=== PATIENT | female | born 1960 | race Caucasian/White ===

== ENCOUNTER 2020-11-06 05:34 | Inpatient (IN) | payer MEDICARE, OTHER ==
[2020-11-05] MEDS: CARVEDILOL 12.5 MG TAB PO SCH (23:00)
[2020-11-06] VITALS (14 sets, daily range): BP systolic 131–177; BP diastolic 64–95
[~2020-11-06] VITALS: Ht 157.5 cm; Wt 63.5 kg
[~2020-11-06 05:34] MED LIST: AMLODIPINE BESY10 MG PO; LISINOPRIL-HCT1 EACH PO; METOPROLOL SUCC50 MG PO; NOVOLIN N100 UNIT/1 SC
[2020-11-06] MEDS ORDERED: HYDRALAZINE HCL 20 MG/ML VIAL IV STA (05:44)
[2020-11-06] MEDS ORDERED: HYDRALAZINE HCL 20 MG/ML VIAL ONE (05:57)
[2020-11-06 06:03] LABS: BASOPHILS # (AUTO) 0.1 (0.0-0.1); BASOPHILS % 0.7 % (0.0-1.0); EOSINOPHILS # (AUTO) 0.5 (0.0-0.4); EOSINOPHILS % 4.1 % (0.0-6.0); HEMATOCRIT 37.3 % (34.2-44.1); HEMOGLOBIN 11.8 g/dL (12.0-16.0); LYMPHOCYTES # (AUTO) 3.4 (1.0-3.2); MEAN CORPUSCULAR HEMOGLOBIN 30.5 pg (28-32); MEAN CORPUSCULAR HGB CONC 31.6 g/dL (31-35); MEAN CORPUSCULAR VOLUME 96.4 fL (81-99); MONOCYTES # (AUTO) 1.2 (0.2-0.8); MONOCYTES % 9.3 % (4.4-11.3); NEUTROPHILS # (AUTO) 7.3 (2.1-6.9); NEUTROPHILS % 58.6 % (38.7-80.0); PLATELET COUNT 440 x10e3/uL (140-360); RED BLOOD COUNT 3.87 x10e6/uL (3.6-5.1); RED CELL DISTRIBUTION WIDTH 13.3 % (11.7-14.4)
[2020-11-06 06:24] LABS: ALBUMIN 3.6 g/dL (3.5-5.0); ALBUMIN/GLOBULIN RATIO 0.7 (0.8-2.0); ANION GAP 16.5 mmol/L (8-16); CALCIUM 9.4 mg/dL (8.4-10.2); CREATININE, SERUM 4.32 mg/dL (0.57-1.11); POTASSIUM 4.5 mmol/L (3.5-5.1)
[2020-11-06 06:30] LABS: CREATINE KINASE MB 1.4 ng/mL (0-5.0)
[2020-11-06] MEDS ORDERED: NICARDIPINE 20MG/200ML PREMIX 200 ML IV STA (08:17)
[2020-11-06] MEDS ORDERED: ASPIRIN 81 MG CHEW TAB PO ONE (08:30)
[2020-11-06] MEDS ORDERED: NICARDIPINE 20MG/200ML PREMIX 200 ML ONE (08:46)
[2020-11-06] MEDS ORDERED: DIPHENHYDRAMINE HCL INJ 50 MG/ML VIAL IV STA (09:00)
[2020-11-06] MEDS ORDERED: CLINDAMYCIN HC150 MG PO (11:57)
[2020-11-06] MEDS ORDERED: CYMBALTA20 MG PO (11:57)
[2020-11-06] MEDS ORDERED: CARVEDILOL12.5 MG PO (11:57)
[2020-11-06] MEDS ORDERED: NIFEDIPINE ER30 M1 PO (11:57)
[2020-11-06] MEDS ORDERED: HYDRALAZINE HCL25 MG PO (11:57)
[2020-11-06] MEDS ORDERED: ACETAMINOPHEN 325 MG TAB PO PRN (14:45)
[2020-11-06] MEDS ORDERED: DOCUSATE SODIUM 100 MG CAP PO PRN (14:45)
[2020-11-06] MEDS ORDERED: POLYETHYLENE GLYCOL 3350 17 GM PACK PO PRN (14:45)
[2020-11-06] MEDS ORDERED: LIDOCAINE 4% PATCH TP PRN (14:45)
[2020-11-06] MEDS ORDERED: BENZONATATE 100 MG CAP PO PRN (14:45)
[2020-11-06] MEDS ORDERED: DIPHENHYDRAMINE HCL 25 MG CAP PO PRN (14:45)
[2020-11-06] MEDS ORDERED: DEXTROSE 50% SYRINGE 50 ML IV PRN (14:45)
[2020-11-06] MEDS ORDERED: SIMETHICONE 80 MG CHEW PO PRN (14:45)
[2020-11-06 14:58] LABS: CREATINE KINASE MB 1.6 ng/mL (0-5.0)
[2020-11-06] MEDS ORDERED: CARVEDILOL 12.5 MG TAB PO SCH (15:30)
[2020-11-06] MEDS ORDERED: ALBUMIN 25% 12.5GM 0.25 GM/ML BTL IV PRN (16:45)
[2020-11-06] MEDS ORDERED: HEPARIN SOD (PORCINE) 1000 UNIT/ML SDV IV PRN (16:45)
[2020-11-06] MEDS ORDERED: SODIUM CHLORIDE 0.9% 1000ML 2,000 ML IV PRN (16:45)
[2020-11-06] MEDS ORDERED: SODIUM CHLORIDE 0.9% 250ML 500 ML IV PRN (16:45)
[2020-11-06 18:23] LABS: CLARITY,URINE SL CLOUDY (CLEAR); COLOR,URINE YELLOW (YELLOW); KETONES,URINE NEGATIVE (NEGATIVE); LEUKOCYTE ESTERASE ,URINE NEGATIVE (NEGATIVE); NITRITE,URINE NEGATIVE (NEGATIVE); PROTEIN,URINE DIPSTICK >=300 (NEGATIVE); URINE UROBILINOGEN 0.2 mg/dL (0.2 - 1)
[2020-11-06 18:36] LABS: BACTERIA,URINE MANY /HPF; EPITHELIAL CELLS,URINE MANY /LPF; TRANSITIONAL EPI CELLS,URINE MODERATE; WBC,URINE (MAN) 0-5 /HPF (0-5)
[2020-11-06] MEDS: HYDROCODONE/APAP 5MG-325MG TAB PO PRN (18:43)
[2020-11-06] MEDS ORDERED: MELATONIN 5 MG TABLET PO PRN (21:00)
[2020-11-07] VITALS (21 sets, daily range): BP systolic 119–187; BP diastolic 52–110
[2020-11-07 04:51] LABS: BASOPHILS # (AUTO) 0.1 (0.0-0.1); BASOPHILS % 0.8 % (0.0-1.0); EOSINOPHILS # (AUTO) 0.3 (0.0-0.4); EOSINOPHILS % 2.7 % (0.0-6.0); HEMATOCRIT 35.3 % (34.2-44.1); HEMOGLOBIN 11.4 g/dL (12.0-16.0); LYMPHOCYTES # (AUTO) 2.4 (1.0-3.2); LYMPHOCYTES % 24.1 % (18.0-39.1); MEAN CORPUSCULAR HEMOGLOBIN 30.7 pg (28-32); MEAN CORPUSCULAR HGB CONC 32.3 g/dL (31-35); MEAN CORPUSCULAR VOLUME 95.1 fL (81-99); MONOCYTES # (AUTO) 0.9 (0.2-0.8); MONOCYTES % 8.9 % (4.4-11.3); NEUTROPHILS # (AUTO) 6.4 (2.1-6.9); NEUTROPHILS % 63.1 % (38.7-80.0); PLATELET COUNT 389 x10e3/uL (140-360); RED BLOOD COUNT 3.71 x10e6/uL (3.6-5.1); RED CELL DISTRIBUTION WIDTH 13.1 % (11.7-14.4)
[2020-11-07 05:08] LABS: ALBUMIN 3.1 g/dL (3.5-5.0); ALBUMIN/GLOBULIN RATIO 0.7 (0.8-2.0); CALCIUM 8.9 mg/dL (8.4-10.2); CREATININE, SERUM 2.29 mg/dL (0.57-1.11)
[2020-11-07 05:39] LABS: CREATINE KINASE MB 1.3 ng/mL (0-5.0)
[2020-11-07 05:52] LABS: CHOL/HDL RATIO 5.9 (3.0-3.6); PHOSPHORUS 3.2 MG/DL (2.3-4.7)
[2020-11-07] MEDS: PANTOPRAZOLE SOD 40 MG TABEC PO SCH (08:10)
[2020-11-07] MEDS: NIFEDIPINE CR 30 MG TAB PO SCH (08:11)
[2020-11-07] MEDS: CARVEDILOL 12.5 MG TAB PO SCH ×2 (08:11→21:01)
[2020-11-07] MEDS: DULOXETINE HCL 20 MG DELAYED RELEASE PO SCH (08:11)
[2020-11-07] MEDS: HYDROCODONE/APAP 5MG-325MG TAB PO PRN ×2 (09:35→11:51)
[2020-11-07] MEDS: ONDANSETRON HCL INJ 2MG/ML 2ML 2 MG/ML VIAL IV PRN (11:49)
[2020-11-08] VITALS (8 sets, daily range): BP systolic 136–177; BP diastolic 68–91
[2020-11-08 06:14] LABS: BASOPHILS # (AUTO) 0.1 (0.0-0.1); BASOPHILS % 0.8 % (0.0-1.0); EOSINOPHILS # (AUTO) 0.3 (0.0-0.4); HEMATOCRIT 36.7 % (34.2-44.1); HEMOGLOBIN 11.4 g/dL (12.0-16.0); LYMPHOCYTES # (AUTO) 2.5 (1.0-3.2); MEAN CORPUSCULAR HEMOGLOBIN 30.9 pg (28-32); MEAN CORPUSCULAR HGB CONC 31.1 g/dL (31-35); MEAN CORPUSCULAR VOLUME 99.5 fL (81-99); MONOCYTES % 8.9 % (4.4-11.3); NEUTROPHILS # (AUTO) 6.9 (2.1-6.9); PLATELET COUNT 334 x10e3/uL (140-360); RED BLOOD COUNT 3.69 x10e6/uL (3.6-5.1)
[2020-11-08 06:34] LABS: ANION GAP 13.5 mmol/L (8-16); CALCIUM 9.7 mg/dL (8.4-10.2); CREATININE, SERUM 3.67 mg/dL (0.57-1.11); POTASSIUM 4.5 mmol/L (3.5-5.1)
[2020-11-08] MEDS: HYDROCODONE/APAP 5MG-325MG TAB PO PRN ×2 (07:04→18:08)
[2020-11-08] MEDS: PANTOPRAZOLE SOD 40 MG TABEC PO SCH (07:30)
[2020-11-08] MEDS: ASPIRIN 81 MG CHEW TAB PO SCH (09:00)
[2020-11-08] MEDS: NIFEDIPINE CR 30 MG TAB PO SCH (09:00)
[2020-11-08] MEDS: DULOXETINE HCL 20 MG DELAYED RELEASE PO SCH (09:00)
[2020-11-08] MEDS: CARVEDILOL 12.5 MG TAB PO SCH ×2 (09:00→21:08)
[2020-11-08] MEDS: DOXAZOSIN MESYLATE 2 MG TAB PO SCH (21:07)
[2020-11-09] VITALS (7 sets, daily range): BP systolic 111–177; BP diastolic 60–85
[2020-11-09] MEDS: HYDROCODONE/APAP 5MG-325MG TAB PO PRN ×3 (04:51→20:00)
[2020-11-09] MEDS: CARVEDILOL 12.5 MG TAB PO SCH ×2 (08:51→21:30)
[2020-11-09] MEDS: CLOPIDOGREL BISULFATE 75 MG TAB PO SCH (08:51)
[2020-11-09] MEDS: ASPIRIN 81 MG CHEW TAB PO SCH (08:51)
[2020-11-09] MEDS: NIFEDIPINE CR 30 MG TAB PO SCH (08:51)
[2020-11-09] MEDS: PANTOPRAZOLE SOD 40 MG TABEC PO SCH (08:51)
[2020-11-09] MEDS: DULOXETINE HCL 20 MG DELAYED RELEASE PO SCH (08:51)
[2020-11-09] MEDS ORDERED: SODIUM CHLORIDE 0.9% 1000ML 1,000 ML IV SCH (11:30)
[2020-11-09] MEDS: ONDANSETRON HCL INJ 2MG/ML 2ML 2 MG/ML VIAL IV PRN (11:31)
[2020-11-09] MEDS: ATORVASTATIN 20 MG TAB PO SCH (21:30)
[2020-11-09] MEDS: DOXAZOSIN MESYLATE 2 MG TAB PO SCH (21:30)
[2020-11-10] VITALS (12 sets, daily range): BP systolic 134–187; BP diastolic 68–82
[2020-11-10] MEDS: HYDROCODONE/APAP 5MG-325MG TAB PO PRN ×4 (03:30→21:29)
[2020-11-10 06:47] LABS: INR 0.89; PROTHROMBIN TIME 12.5 seconds (11.9-14.5)
[2020-11-10 06:48] LABS: PARTIAL THROMBOPLASTIN TIME 30.6 seconds (23.8-35.5)
[2020-11-10 06:49] LABS: ANION GAP 15.5 mmol/L (8-16); CREATININE, SERUM 3.44 mg/dL (0.57-1.11); POTASSIUM 4.5 mmol/L (3.5-5.1)
[2020-11-10 07:21] LABS: BASOPHILS # (AUTO) 0.1 (0.0-0.1); BASOPHILS % 0.8 % (0.0-1.0); EOSINOPHILS # (AUTO) 0.4 (0.0-0.4); EOSINOPHILS % 4.1 % (0.0-6.0); HEMOGLOBIN 11.3 g/dL (12.0-16.0); LYMPHOCYTES # (AUTO) 1.9 (1.0-3.2); LYMPHOCYTES % 20.3 % (18.0-39.1); MEAN CORPUSCULAR HEMOGLOBIN 30.9 pg (28-32); MEAN CORPUSCULAR HGB CONC 31.4 g/dL (31-35); MEAN CORPUSCULAR VOLUME 98.4 fL (81-99); MONOCYTES # (AUTO) 0.9 (0.2-0.8); MONOCYTES % 10.2 % (4.4-11.3); NEUTROPHILS # (AUTO) 5.9 (2.1-6.9); NEUTROPHILS % 63.7 % (38.7-80.0); PLATELET COUNT 365 x10e3/uL (140-360); RED BLOOD COUNT 3.66 x10e6/uL (3.6-5.1); RED CELL DISTRIBUTION WIDTH 12.8 % (11.7-14.4)
[2020-11-10] MEDS: DULOXETINE HCL 20 MG DELAYED RELEASE PO SCH (09:00)
[2020-11-10] MEDS: NIFEDIPINE CR 30 MG TAB PO SCH (09:39)
[2020-11-10] MEDS: CLOPIDOGREL BISULFATE 75 MG TAB PO SCH (09:39)
[2020-11-10] MEDS: PANTOPRAZOLE SOD 40 MG TABEC PO SCH (09:45)
[2020-11-10] MEDS: ASPIRIN 81 MG CHEW TAB PO SCH (09:45)
[2020-11-10] MEDS: CARVEDILOL 12.5 MG TAB PO SCH ×2 (09:45→21:29)
[2020-11-10] MEDS ORDERED: MIDAZOLAM HCL 2 MG/2 ML VIAL ONE ×3 (11:09→14:02)
[2020-11-10] MEDS ORDERED: HEPARIN SOD/SOD CHLORIDE 2,000 ML ONE (11:10)
[2020-11-10] MEDS ORDERED: IOPAMIDOL 300MG/ML 100 ML INFUS..BTL IV ONE (11:10)
[2020-11-10] MEDS ORDERED: LIDOCAINE HCL 2% LOCAL 20 ML VIAL ONE (11:10)
[2020-11-10] MEDS ORDERED: FENTANYL CITRATE/PF 100MCG/2 ML INJ ONE ×2 (11:10→14:03)
[2020-11-10] MEDS ORDERED: SODIUM CHLORIDE 0.9% 1000ML 1,000 ML ONE (11:11)
[2020-11-10] MEDS ORDERED: HEPARIN SOD (PORCINE) 1000 UNIT/ML 30ML ONE (13:14)
[2020-11-10] MEDS ORDERED: CLOPIDOGREL BISULFATE 75 MG TAB ONE (13:23)
[2020-11-10] MEDS ORDERED: ASPIRIN 325 MG TAB ONE (13:23)
[2020-11-10] MEDS ORDERED: IOPAMIDOL 300MG/ML 50ML INFUS..BTL IV ONE (13:44)
[2020-11-10] MEDS ORDERED: CARVEDILOL 12.5 MG TAB PO NR (16:15)
[2020-11-10] MEDS ORDERED: NITROGLYCERIN 0.4 MG SUBL SL ONE (16:15)
[2020-11-10] MEDS: DOXAZOSIN MESYLATE 2 MG TAB PO SCH (21:28)
[2020-11-10] MEDS: ATORVASTATIN 20 MG TAB PO SCH (21:29)
[2020-11-11] VITALS (8 sets, daily range): BP systolic 149–183; BP diastolic 64–83
[2020-11-11] MEDS: HYDROCODONE/APAP 5MG-325MG TAB PO PRN ×3 (03:11→19:46)
[2020-11-11 05:29] LABS: BASOPHILS # (AUTO) 0.1 (0.0-0.1); BASOPHILS % 0.6 % (0.0-1.0); EOSINOPHILS # (AUTO) 0.2 (0.0-0.4); EOSINOPHILS % 1.8 % (0.0-6.0); HEMATOCRIT 32.7 % (34.2-44.1); HEMOGLOBIN 10.3 g/dL (12.0-16.0); LYMPHOCYTES # (AUTO) 1.4 (1.0-3.2); LYMPHOCYTES % 13.7 % (18.0-39.1); MEAN CORPUSCULAR HEMOGLOBIN 30.1 pg (28-32); MEAN CORPUSCULAR HGB CONC 31.5 g/dL (31-35); MEAN CORPUSCULAR VOLUME 95.6 fL (81-99); MONOCYTES # (AUTO) 1.1 (0.2-0.8); MONOCYTES % 10.7 % (4.4-11.3); NEUTROPHILS # (AUTO) 7.4 (2.1-6.9); NEUTROPHILS % 72.7 % (38.7-80.0); PLATELET COUNT 310 x10e3/uL (140-360); RED BLOOD COUNT 3.42 x10e6/uL (3.6-5.1); RED CELL DISTRIBUTION WIDTH 12.9 % (11.7-14.4)
[2020-11-11 06:05] LABS: ANION GAP 13.6 mmol/L (8-16); CALCIUM 8.7 mg/dL (8.4-10.2); CREATININE, SERUM 4.47 mg/dL (0.57-1.11); MAGNESIUM 2.2 MG/DL (1.3-2.1); PHOSPHORUS 5.8 MG/DL (2.3-4.7); POTASSIUM 4.6 mmol/L (3.5-5.1)
[2020-11-11] MEDS: PANTOPRAZOLE SOD 40 MG TABEC PO SCH (08:36)
[2020-11-11] MEDS: CARVEDILOL 12.5 MG TAB PO SCH ×3 (08:41→21:00)
[2020-11-11] MEDS: ASPIRIN 81 MG CHEW TAB PO SCH (08:41)
[2020-11-11] MEDS: DULOXETINE HCL 20 MG DELAYED RELEASE PO SCH (08:41)
[2020-11-11] MEDS: HYDRALAZINE HCL 25 MG TAB PO SCH ×4 (09:00→22:00)
[2020-11-11] MEDS ORDERED: NIFEDIPINE CR 30 MG TAB PO SCH ×2 (09:00→12:30)
[2020-11-11] MEDS ORDERED: ASPIRIN 325 MG TAB PO SCH (09:00)
[2020-11-11] MEDS: CLOPIDOGREL BISULFATE 75 MG TAB PO SCH (09:00)
[2020-11-11] MEDS: NIFEDIPINE CR 30 MG TAB PO SCH (13:45)
[2020-11-11] MEDS ORDERED: ONDANSETRON HCL 4 MG ORAL DISINTEGRATING TAB PO PRN (18:30)
[2020-11-11] MEDS ORDERED: DOXAZOSIN MESYLATE 2 MG TAB PO SCH (21:00)
[2020-11-11] MEDS ORDERED: ATORVASTATIN 40 MG TAB PO SCH (21:00)
[2020-11-12] VITALS (7 sets, daily range): BP systolic 106–144; BP diastolic 54–77
[2020-11-12 05:29] LABS: CALCIUM 8.5 mg/dL (8.4-10.2); CREATININE, SERUM 3.15 mg/dL (0.57-1.11)
[2020-11-12] MEDS: HYDRALAZINE HCL 25 MG TAB PO SCH ×3 (05:48→18:00)
[2020-11-12] MEDS: HYDROCODONE/APAP 5MG-325MG TAB PO PRN (05:48)
[2020-11-12] MEDS: PANTOPRAZOLE SOD 40 MG TABEC PO SCH (08:30)
[2020-11-12] MEDS: ASPIRIN 81 MG CHEW TAB PO SCH (09:22)
[2020-11-12] MEDS: DULOXETINE HCL 20 MG DELAYED RELEASE PO SCH (09:22)
[2020-11-12] MEDS: CARVEDILOL 12.5 MG TAB PO SCH (09:22)
[2020-11-12] MEDS: NIFEDIPINE CR 30 MG TAB PO SCH (09:23)
[2020-11-12] MEDS: CLOPIDOGREL BISULFATE 75 MG TAB PO SCH (09:23)
[2020-11-12] MEDS ORDERED: KETOROLAC TROMETHAMINE 30 MG/ML VIAL IV ONE (16:45)
== END 2020-11-12 19:18 | disposition home or self-care (01) | DRG 252 ==
LOC: ER 05:42 → ERHOLD 08:50 → ICU 10:20 → MED/SURG2 11-07 22:30
PROVIDERS: ADMIT Internal Medicine; ATTEND Internal Medicine
PROC: 5A1D70Z Performance of Urinary Filtration, Intermittent, Less than 6 Hours Per Day (ICD-10-PCS; 2020-11-06)
PROC: 5A1D70Z Performance of Urinary Filtration, Intermittent, Less than 6 Hours Per Day (ICD-10-PCS; 2020-11-09)
PROC: 047Q3Z1 Dilation of Left Anterior Tibial Artery using Drug-Coated Balloon, Percutaneous Approach (ICD-10-PCS; principal; 2020-11-10)
PROC: 047N3Z1 Dilation of Left Popliteal Artery using Drug-Coated Balloon, Percutaneous Approach (ICD-10-PCS; 2020-11-10)
PROC: 047L341 Dilation of Left Femoral Artery with Drug-eluting Intraluminal Device, using Drug-Coated Balloon, Percutaneous Approach (ICD-10-PCS; 2020-11-10)
PROC: B4101ZZ Fluoroscopy of Abdominal Aorta using Low Osmolar Contrast (ICD-10-PCS; 2020-11-10)
PROC: 5A1D70Z Performance of Urinary Filtration, Intermittent, Less than 6 Hours Per Day (ICD-10-PCS; 2020-11-11)
DX: I16.1 Hypertensive emergency (principal); N18.6 End stage renal disease; I63.9 Cerebral infarction, unspecified; I13.11 Hypertensive heart and chronic kidney disease without heart failure, with stage 5 chronic kidney disease, or end stage renal disease; E11.51 Type 2 diabetes mellitus with diabetic peripheral angiopathy without gangrene; F32.9 Major depressive disorder, single episode, unspecified; H54.3 Unqualified visual loss, both eyes; I25.10 Atherosclerotic heart disease of native coronary artery without angina pectoris; Z95.1 Presence of aortocoronary bypass graft; Z86.73 Personal history of transient ischemic attack (TIA), and cerebral infarction without residual deficits; D63.1 Anemia in chronic kidney disease; I70.212 Atherosclerosis of native arteries of extremities with intermittent claudication, left leg; Z79.899 Other long term (current) drug therapy; E83.39 Other disorders of phosphorus metabolism; Z99.2 Dependence on renal dialysis; Z88.8 Allergy status to other drugs, medicaments and biological substances; K46.9 Unspecified abdominal hernia without obstruction or gangrene; Z83.3 Family history of diabetes mellitus; Z82.49 Family history of ischemic heart disease and other diseases of the circulatory system; Z95.5 Presence of coronary angioplasty implant and graft; Z90.5 Acquired absence of kidney; I70.235 Atherosclerosis of native arteries of right leg with ulceration of other part of foot; L97.519 Non-pressure chronic ulcer of other part of right foot with unspecified severity; K80.20 Calculus of gallbladder without cholecystitis without obstruction; R01.1 Cardiac murmur, unspecified; Z20.822 Contact with and (suspected) exposure to COVID-19
CPT/HCPCS: 36247; 36415; 37226; 37228; 70450; 71045; 74018; 74176; 75625; 75716; 80048; 80053; 80061; 81001; 82550; 82553; 82948; 83036; 83690; 83735; 84100; 84484; 85025; 85610; 85730; 86704; 86705; 86707; 87340; 93005; 93041; 93306; 93925; 99152; 99153; 99285; C1725; C1760; C1769; C1887; J0360; J1644; J1885; J2001; J2250; J2405; J3010; J7030; Q9967; U0002

== ENCOUNTER 2020-12-10 12:45 | Inpatient (IN) | payer MEDICARE, OTHER ==
[~2020-12-10] VITALS: Ht 157.5 cm; Wt 62.6 kg
[~2020-12-10 12:45] MED LIST changes: +CARVEDILOL12.5 MG PO; +CLINDAMYCIN HC150 MG PO; +CYMBALTA20 MG PO; +HYDRALAZINE HCL25 MG PO; +NIFEDIPINE ER30 M1 PO
[2020-12-10 13:30] LABS: BASOPHILS # (AUTO) 0.1 (0.0-0.1); BASOPHILS % 0.6 % (0.0-1.0); EOSINOPHILS # (AUTO) 0.5 (0.0-0.4); EOSINOPHILS % 3.5 % (0.0-6.0); HEMATOCRIT 31.6 % (34.2-44.1); HEMOGLOBIN 9.9 g/dL (12.0-16.0); LYMPHOCYTES # (AUTO) 2.2 (1.0-3.2); LYMPHOCYTES % 15.3 % (18.0-39.1); MEAN CORPUSCULAR HEMOGLOBIN 29.7 pg (28-32); MEAN CORPUSCULAR HGB CONC 31.3 g/dL (31-35); MEAN CORPUSCULAR VOLUME 94.9 fL (81-99); MONOCYTES % 7.3 % (4.4-11.3); NEUTROPHILS # (AUTO) 10.2 (2.1-6.9); NEUTROPHILS % 72.8 % (38.7-80.0); PLATELET COUNT 572 x10e3/uL (140-360); RED BLOOD COUNT 3.33 x10e6/uL (3.6-5.1); RED CELL DISTRIBUTION WIDTH 12.6 % (11.7-14.4)
[2020-12-10 13:44] LABS: INR 0.89; PROTHROMBIN TIME 12.6 seconds (11.9-14.5)
[2020-12-10 13:45] LABS: PARTIAL THROMBOPLASTIN TIME 30.9 seconds (23.8-35.5)
[2020-12-10 13:51] LABS: ALBUMIN/GLOBULIN RATIO 0.5 (0.8-2.0); ANION GAP 19.6 mmol/L (8-16); CALCIUM 9.6 mg/dL (8.4-10.2); CREATININE, SERUM 4.45 mg/dL (0.57-1.11); POTASSIUM 4.6 mmol/L (3.5-5.1)
[2020-12-10 14:09] LABS: B-TYPE NATRIURETIC PEPTIDE2 851.1 pg/mL (0-100)
[2020-12-10] MEDS ORDERED: PIPERACILLIN/TAZO 4.5 GM 100 ML IV STA (14:10)
[2020-12-10] MEDS ORDERED: CEFEPIME HCL 1GM 1 GM in SODIUM CHLORIDE 0.9% 50ML 50 ML IV STA (14:14)
[2020-12-10] MEDS ORDERED: VANCOMYCIN 500MG/NS 0.9% 100ML 100 ML IV SCH ×2 (15:00→17:00)
[2020-12-10] MEDS ORDERED: SODIUM CHLORIDE 0.9% 1000ML 2,000 ML ONE (16:27)
[2020-12-10] MEDS ORDERED: SODIUM CHLORIDE 0.9% 1000ML 1,000 ML ONE (16:39)
[2020-12-10] MEDS ORDERED: SODIUM CHLORIDE 0.9% 1000ML 2,000 ML IV PRN (17:00)
[2020-12-10] MEDS ORDERED: HEPARIN SOD (PORCINE) 1000 UNIT/ML SDV IV PRN (17:00)
[2020-12-10 17:20] VITALS: BP 174/93
[2020-12-10 17:54] VITALS: BP 174/93
[2020-12-10] MEDS ORDERED: HYDROMORPHONE 1MG/1ML INJ IV STA (19:53)
[2020-12-10 20:00] VITALS: BP 113/71
[2020-12-10] MEDS ORDERED: ATORVASTATIN CA20 MG PO (20:04)
[2020-12-10] MEDS ORDERED: DOXAZOSIN MESYLA2 MG PO (20:04)
[2020-12-10] MEDS ORDERED: NIFEDIPINE ER30 M1 PO ×2 (20:04)
[2020-12-10] MEDS ORDERED: CLOPIDOGREL75 MG PO (20:04)
[2020-12-10] MEDS ORDERED: SODIUM CHLORIDE 0.9% 250ML 250 ML ONE (20:47)
[2020-12-10 20:49] VITALS: BP 113/71
[2020-12-10] MEDS: VANCOMYCIN 500MG/NS 0.9% 100ML 100 ML IV SCH (21:19)
[2020-12-11] VITALS (8 sets, daily range): BP systolic 126–159; BP diastolic 67–91
[2020-12-11] MEDS ORDERED: CEFEPIME HCL 1GM 1 GM in SODIUM CHLORIDE 0.9% 50ML 50 ML IV SCH (03:30)
[2020-12-11] MEDS: HYDROCODONE/APAP 5MG-325MG TAB PO PRN ×3 (04:01→21:38)
[2020-12-11 05:38] LABS: BASOPHILS # (AUTO) 0.1 (0.0-0.1); BASOPHILS % 0.6 % (0.0-1.0); EOSINOPHILS # (AUTO) 0.3 (0.0-0.4); EOSINOPHILS % 2.8 % (0.0-6.0); HEMATOCRIT 31.3 % (34.2-44.1); HEMOGLOBIN 10.2 g/dL (12.0-16.0); LYMPHOCYTES # (AUTO) 2.3 (1.0-3.2); LYMPHOCYTES % 19.7 % (18.0-39.1); MEAN CORPUSCULAR HGB CONC 32.6 g/dL (31-35); MEAN CORPUSCULAR VOLUME 92.1 fL (81-99); MONOCYTES # (AUTO) 1.1 (0.2-0.8); MONOCYTES % 9.1 % (4.4-11.3); NEUTROPHILS # (AUTO) 7.9 (2.1-6.9); NEUTROPHILS % 67.4 % (38.7-80.0); PLATELET COUNT 525 x10e3/uL (140-360); RED CELL DISTRIBUTION WIDTH 12.2 % (11.7-14.4)
[2020-12-11 06:02] LABS: ANION GAP 14.3 mmol/L (8-16); CALCIUM 8.7 mg/dL (8.4-10.2); CREATININE, SERUM 2.67 mg/dL (0.57-1.11); POTASSIUM 4.3 mmol/L (3.5-5.1)
[2020-12-11] MEDS: DULOXETINE HCL 20 MG DELAYED RELEASE PO SCH (09:00)
[2020-12-11] MEDS: NIFEDIPINE CR 30 MG TAB PO SCH (09:00)
[2020-12-11] MEDS: ATORVASTATIN 20 MG TAB PO SCH (09:00)
[2020-12-11] MEDS: VANCOMYCIN 500MG/NS 0.9% 100ML 100 ML IV SCH (09:18)
[2020-12-11] MEDS ORDERED: SODIUM CHLORIDE 0.9% 500ML 500 ML ONE (10:41)
[2020-12-11] MEDS ORDERED: BUPIVACAINE HCL 0.5% INJ 30 ML VIAL INJ ONE (10:46)
[2020-12-11] MEDS ORDERED: MUPIROCIN 2% OINT 22 GM TUBE ONE (11:31)
[2020-12-11] MEDS ORDERED: FENTANYL CITRATE/PF 100MCG/2 ML INJ ONE ×2 (12:09→13:11)
[2020-12-11] MEDS ORDERED: MIDAZOLAM HCL 2 MG/2 ML VIAL ONE (13:11)
[2020-12-11] MEDS ORDERED: VANCOMYCIN 1GM/NS 250 ML 250 ML IV SCH (13:15)
[2020-12-11] MEDS ORDERED: PROPOFOL IV EMULSION 10 MG/ML 20 ML VIAL ONE (13:43)
[2020-12-11] MEDS ORDERED: ONDANSETRON HCL INJ 2MG/ML 2ML 2 MG/ML VIAL ONE (13:43)
[2020-12-11] MEDS ORDERED: EPHEDRINE SULFATE INJ 50 MG/ML VIAL ONE (13:43)
[2020-12-11] MEDS ORDERED: SEVOFLURANE INHAL SOLN 250 ML PEN BTL ONE (13:43)
[2020-12-11] MEDS ORDERED: LIDOCAINE HCL 2% LOCAL INJ 5 ML SDV VIAL INJ ONE (13:43)
[2020-12-11] MEDS: DOXAZOSIN MESYLATE 2 MG TAB PO SCH (21:37)
[2020-12-12] VITALS (8 sets, daily range): BP systolic 144–183; BP diastolic 74–83
[2020-12-12] MEDS: HYDROCODONE/APAP 5MG-325MG TAB PO PRN (06:30)
[2020-12-12 07:19] LABS: BASOPHILS # (AUTO) 0.1 (0.0-0.1); BASOPHILS % 0.6 % (0.0-1.0); EOSINOPHILS # (AUTO) 0.8 (0.0-0.4); EOSINOPHILS % 8.3 % (0.0-6.0); HEMATOCRIT 30.7 % (34.2-44.1); HEMOGLOBIN 9.6 g/dL (12.0-16.0); LYMPHOCYTES # (AUTO) 1.8 (1.0-3.2); LYMPHOCYTES % 18.2 % (18.0-39.1); MEAN CORPUSCULAR HEMOGLOBIN 29.6 pg (28-32); MEAN CORPUSCULAR HGB CONC 31.3 g/dL (31-35); MEAN CORPUSCULAR VOLUME 94.8 fL (81-99); MONOCYTES # (AUTO) 1.1 (0.2-0.8); MONOCYTES % 11.7 % (4.4-11.3); NEUTROPHILS # (AUTO) 5.9 (2.1-6.9); NEUTROPHILS % 60.9 % (38.7-80.0); PLATELET COUNT 535 x10e3/uL (140-360); RED BLOOD COUNT 3.24 x10e6/uL (3.6-5.1); RED CELL DISTRIBUTION WIDTH 12.4 % (11.7-14.4)
[2020-12-12 07:45] LABS: ALBUMIN 2.8 g/dL (3.5-5.0); ALBUMIN/GLOBULIN RATIO 0.6 (0.8-2.0); ALKALINE PHOSPHATASE 77 IU/L (40-150); ANION GAP 14.7 mmol/L (8-16); BLOOD UREA NITROGEN 29 mg/dL (7-26); BUN/CREATININE RATIO 7 (6-25); CALCIUM 8.6 mg/dL (8.4-10.2); CARBON DIOXIDE 26 mmol/L (22-29); CHLORIDE 105 mmol/L (98-107); CREATININE, SERUM 4.02 mg/dL (0.57-1.11); EST GLOMERULAR FILTRATION RATE 11 ML/MIN (60-); GLUCOSE 133 mg/dL (74-118); POTASSIUM 4.7 mmol/L (3.5-5.1); SODIUM 141 mmol/L (136-145)
[2020-12-12 07:46] LABS: ALANINE AMINOTRANSFERASE < 6 IU/L (0-55)
[2020-12-12] MEDS ORDERED: CEFEPIME HCL 1 GM VIAL IV SCH (09:00)
[2020-12-12] MEDS: CEFEPIME HCL 1GM 1 GM in SODIUM CHLORIDE 0.9% 50ML 50 ML IV SCH ×2 (09:00→10:50)
[2020-12-12] MEDS: DULOXETINE HCL 20 MG DELAYED RELEASE PO SCH (09:33)
[2020-12-12] MEDS: ATORVASTATIN 20 MG TAB PO SCH (09:33)
[2020-12-12] MEDS: NIFEDIPINE CR 30 MG TAB PO SCH (09:34)
[2020-12-12] MEDS ORDERED: HEPARIN SOD (PORCINE) 1000 UNIT/ML SDV IV PRN (15:45)
[2020-12-12] MEDS: DOXAZOSIN MESYLATE 2 MG TAB PO SCH (21:00)
[2020-12-12] MEDS: ONDANSETRON HCL INJ 2MG/ML 2ML 2 MG/ML VIAL IV PRN (21:30)
[2020-12-13] VITALS (8 sets, daily range): BP systolic 137–175; BP diastolic 69–92
[2020-12-13] MEDS: DULOXETINE HCL 20 MG DELAYED RELEASE PO SCH (09:54)
[2020-12-13] MEDS: ATORVASTATIN 20 MG TAB PO SCH (09:54)
[2020-12-13] MEDS: NIFEDIPINE CR 30 MG TAB PO SCH (09:55)
[2020-12-13] MEDS: CEFEPIME HCL 1GM 1 GM in SODIUM CHLORIDE 0.9% 50ML 50 ML IV SCH (09:58)
[2020-12-13] MEDS: HYDROCODONE/APAP 5MG-325MG TAB PO PRN ×2 (10:26→21:22)
[2020-12-13] MEDS: DOXAZOSIN MESYLATE 2 MG TAB PO SCH (21:22)
[2020-12-14] VITALS (8 sets, daily range): BP systolic 125–188; BP diastolic 64–90
[2020-12-14] MEDS: CLONIDINE HCL 0.1 MG TAB PO PRN ×2 (06:05→12:43)
[2020-12-14 06:14] LABS: BASOPHILS # (AUTO) 0.1 (0.0-0.1); BASOPHILS % 0.7 % (0.0-1.0); EOSINOPHILS # (AUTO) 0.9 (0.0-0.4); EOSINOPHILS % 10.2 % (0.0-6.0); HEMATOCRIT 29.7 % (34.2-44.1); HEMOGLOBIN 9.3 g/dL (12.0-16.0); LYMPHOCYTES # (AUTO) 2.4 (1.0-3.2); MEAN CORPUSCULAR HEMOGLOBIN 29.7 pg (28-32); MEAN CORPUSCULAR HGB CONC 31.3 g/dL (31-35); MEAN CORPUSCULAR VOLUME 94.9 fL (81-99); MONOCYTES # (AUTO) 0.9 (0.2-0.8); NEUTROPHILS # (AUTO) 4.8 (2.1-6.9); NEUTROPHILS % 52.8 % (38.7-80.0); PLATELET COUNT 469 x10e3/uL (140-360); RED BLOOD COUNT 3.13 x10e6/uL (3.6-5.1); RED CELL DISTRIBUTION WIDTH 12.4 % (11.7-14.4)
[2020-12-14 06:27] LABS: ALBUMIN 2.8 g/dL (3.5-5.0); ALBUMIN/GLOBULIN RATIO 0.6 (0.8-2.0); ANION GAP 14.4 mmol/L (8-16); CALCIUM 8.7 mg/dL (8.4-10.2); CREATININE, SERUM 4.36 mg/dL (0.57-1.11); POTASSIUM 4.4 mmol/L (3.5-5.1)
[2020-12-14] MEDS: DULOXETINE HCL 20 MG DELAYED RELEASE PO SCH (08:23)
[2020-12-14] MEDS: ATORVASTATIN 20 MG TAB PO SCH (08:24)
[2020-12-14] MEDS: NIFEDIPINE CR 30 MG TAB PO SCH (08:25)
[2020-12-14] MEDS: CEFEPIME HCL 1GM 1 GM in SODIUM CHLORIDE 0.9% 50ML 50 ML IV SCH (08:31)
[2020-12-14] MEDS ORDERED: CEFTRIAXONE SOD 2 GM/100 ML ML IV SCH (14:15)
[2020-12-14] MEDS ORDERED: CEFTRIAXONE SOD 2 GM in SODIUM CHLORIDE 0.9% 100 ML IV SCH (15:00)
[2020-12-14] MEDS: HYDRALAZINE HCL 25 MG TAB PO SCH ×2 (15:59→21:12)
[2020-12-14] MEDS ORDERED: SODIUM CHLORIDE 0.9% 250ML 250 ML ONE (17:15)
[2020-12-14] MEDS: CEFTRIAXONE SOD 2 GM in SODIUM CHLORIDE 0.9% 100 ML IV SCH (17:15)
[2020-12-14] MEDS: HYDROCODONE/APAP 5MG-325MG TAB PO PRN (21:12)
[2020-12-15] VITALS (9 sets, daily range): BP systolic 148–189; BP diastolic 67–89
[2020-12-15] MEDS: HYDRALAZINE HCL 25 MG TAB PO SCH ×3 (07:57→21:30)
[2020-12-15] MEDS: HYDROCODONE/APAP 5MG-325MG TAB PO PRN (08:08)
[2020-12-15] MEDS: ATORVASTATIN 20 MG TAB PO SCH (08:08)
[2020-12-15] MEDS: DULOXETINE HCL 20 MG DELAYED RELEASE PO SCH (08:08)
[2020-12-15] MEDS: NIFEDIPINE CR 30 MG TAB PO SCH ×2 (09:00→12:37)
[2020-12-15] MEDS: ONDANSETRON HCL INJ 2MG/ML 2ML 2 MG/ML VIAL IV PRN (10:37)
[2020-12-15] MEDS: CLONIDINE HCL 0.1 MG TAB PO PRN (16:10)
[2020-12-15] MEDS: CEFTRIAXONE SOD 2 GM in SODIUM CHLORIDE 0.9% 100 ML IV SCH (16:30)
[2020-12-16] VITALS (12 sets, daily range): BP systolic 132–169; BP diastolic 61–85
[2020-12-16] MEDS: HYDRALAZINE HCL 25 MG TAB PO SCH ×3 (08:02→21:00)
[2020-12-16] MEDS: DULOXETINE HCL 20 MG DELAYED RELEASE PO SCH (08:02)
[2020-12-16] MEDS: NIFEDIPINE CR 30 MG TAB PO SCH (08:03)
[2020-12-16 08:22] LABS: BASOPHILS # (AUTO) 0.1 (0.0-0.1); BASOPHILS % 1.1 % (0.0-1.0); EOSINOPHILS # (AUTO) 0.7 (0.0-0.4); LYMPHOCYTES # (AUTO) 2.4 (1.0-3.2); LYMPHOCYTES % 27.7 % (18.0-39.1); MEAN CORPUSCULAR HEMOGLOBIN 29.9 pg (28-32); MEAN CORPUSCULAR HGB CONC 32.3 g/dL (31-35); MEAN CORPUSCULAR VOLUME 92.8 fL (81-99); MONOCYTES # (AUTO) 0.7 (0.2-0.8); MONOCYTES % 8.2 % (4.4-11.3); NEUTROPHILS # (AUTO) 4.8 (2.1-6.9); NEUTROPHILS % 54.7 % (38.7-80.0); PLATELET COUNT 457 x10e3/uL (140-360); RED BLOOD COUNT 3.34 x10e6/uL (3.6-5.1); RED CELL DISTRIBUTION WIDTH 12.5 % (11.7-14.4)
[2020-12-16 08:56] LABS: ANION GAP 12.3 mmol/L (8-16); CALCIUM 9.2 mg/dL (8.4-10.2); CREATININE, SERUM 3.3 mg/dL (0.57-1.11); POTASSIUM 4.3 mmol/L (3.5-5.1)
[2020-12-16] MEDS: CEFTRIAXONE SOD 2 GM in SODIUM CHLORIDE 0.9% 100 ML IV SCH (17:23)
[2020-12-16] MEDS: ATORVASTATIN 40 MG TAB PO SCH (21:00)
[2020-12-17] VITALS (9 sets, daily range): BP systolic 131–184; BP diastolic 64–82
[2020-12-17] MEDS: HYDROCODONE/APAP 5MG-325MG TAB PO PRN ×2 (00:30→10:51)
[2020-12-17] MEDS: DULOXETINE HCL 20 MG DELAYED RELEASE PO SCH (09:00)
[2020-12-17] MEDS: HYDRALAZINE HCL 25 MG TAB PO SCH ×3 (09:34→20:51)
[2020-12-17] MEDS: NIFEDIPINE CR 30 MG TAB PO SCH (09:35)
[2020-12-17] MEDS: CLONIDINE HCL 0.1 MG TAB PO PRN (11:23)
[2020-12-17] MEDS ORDERED: ONDANSETRON HCL 4 MG ORAL DISINTEGRATING TAB PO PRN (16:00)
[2020-12-17] MEDS: ATORVASTATIN 40 MG TAB PO SCH (20:51)
== END 2020-12-17 21:07 | disposition home or self-care (01) | DRG 853 ==
LOC: ER 14:01 → ERHOLD 14:13 → MED/SURG3 15:36
PROVIDERS: ADMIT Internal Medicine; ATTEND Internal Medicine
PROC: 5A1D70Z Performance of Urinary Filtration, Intermittent, Less than 6 Hours Per Day (ICD-10-PCS; 2020-12-10)
PROC: 0HRNXK3 Replacement of Left Foot Skin with Nonautologous Tissue Substitute, Full Thickness, External Approach (ICD-10-PCS; 2020-12-11)
PROC: 0Y6Q0Z0 Detachment at Left 1st Toe, Complete, Open Approach (ICD-10-PCS; principal; 2020-12-11 10:30)
PROC: 5A1D70Z Performance of Urinary Filtration, Intermittent, Less than 6 Hours Per Day (ICD-10-PCS; 2020-12-12)
PROC: 5A1D70Z Performance of Urinary Filtration, Intermittent, Less than 6 Hours Per Day (ICD-10-PCS; 2020-12-15)
PROC: 5A1D70Z Performance of Urinary Filtration, Intermittent, Less than 6 Hours Per Day (ICD-10-PCS; 2020-12-17)
DX: A41.9 Sepsis, unspecified organism (principal); N18.6 End stage renal disease; G92 Toxic encephalopathy; I12.0 Hypertensive chronic kidney disease with stage 5 chronic kidney disease or end stage renal disease; N17.9 Acute kidney failure, unspecified; M86.172 Other acute osteomyelitis, left ankle and foot; L03.032 Cellulitis of left toe; E11.69 Type 2 diabetes mellitus with other specified complication; E11.22 Type 2 diabetes mellitus with diabetic chronic kidney disease; Z99.2 Dependence on renal dialysis; Z91.15 Patient's noncompliance with renal dialysis; I25.10 Atherosclerotic heart disease of native coronary artery without angina pectoris; Z95.5 Presence of coronary angioplasty implant and graft; Z90.5 Acquired absence of kidney; Z88.8 Allergy status to other drugs, medicaments and biological substances; Z91.120 Patient's intentional underdosing of medication regimen due to financial hardship; E11.319 Type 2 diabetes mellitus with unspecified diabetic retinopathy without macular edema; Z82.49 Family history of ischemic heart disease and other diseases of the circulatory system; D64.9 Anemia, unspecified; Z95.820 Peripheral vascular angioplasty status with implants and grafts; R53.81 Other malaise; T36.1X5A Adverse effect of cephalosporins and other beta-lactam antibiotics, initial encounter; Y92.230 Patient room in hospital as the place of occurrence of the external cause; E11.621 Type 2 diabetes mellitus with foot ulcer; L97.524 Non-pressure chronic ulcer of other part of left foot with necrosis of bone; B95.61 Methicillin susceptible Staphylococcus aureus infection as the cause of diseases classified elsewhere; B96.89 Other specified bacterial agents as the cause of diseases classified elsewhere
CPT/HCPCS: 36415; 71045; 76000; 80048; 80053; 82948; 83605; 83880; 85025; 85610; 85730; 86704; 86706; 87040; 87071; 87075; 87186; 87205; 87340; 88304; 88305; 88311; 90962; 93005; 93925; 99251; 99284; J0692; J0696; J1170; J1644; J2001; J2250; J2405; J3010; J3370; J7030; J7040; J7050; U0002

== ENCOUNTER 2020-12-21 12:07 | Inpatient (IN) | payer MEDICARE, OTHER ==
[~2020-12-21] VITALS: Ht 157.5 cm; Wt 62.6 kg
[~2020-12-21 12:07] MED LIST changes: +ATORVASTATIN CA20 MG PO; +CLOPIDOGREL75 MG PO; +DOXAZOSIN MESYLA2 MG PO
[2020-12-21 12:45] LABS: BASOPHILS # (AUTO) 0.1 (0.0-0.1); BASOPHILS % 0.8 % (0.0-1.0); EOSINOPHILS # (AUTO) 0.6 (0.0-0.4); EOSINOPHILS % 4.2 % (0.0-6.0); HEMATOCRIT 33.3 % (34.2-44.1); HEMOGLOBIN 10.4 g/dL (12.0-16.0); LYMPHOCYTES # (AUTO) 2.2 (1.0-3.2); LYMPHOCYTES % 15.5 % (18.0-39.1); MEAN CORPUSCULAR HEMOGLOBIN 29.5 pg (28-32); MEAN CORPUSCULAR HGB CONC 31.2 g/dL (31-35); MEAN CORPUSCULAR VOLUME 94.3 fL (81-99); MONOCYTES # (AUTO) 0.8 (0.2-0.8); MONOCYTES % 5.9 % (4.4-11.3); NEUTROPHILS # (AUTO) 10.4 (2.1-6.9); PLATELET COUNT 381 x10e3/uL (140-360); RED BLOOD COUNT 3.53 x10e6/uL (3.6-5.1); RED CELL DISTRIBUTION WIDTH 13.2 % (11.7-14.4)
[2020-12-21 13:10] LABS: INR 0.85; PROTHROMBIN TIME 12.2 seconds (11.9-14.5)
[2020-12-21 13:16] LABS: ALBUMIN 3.6 g/dL (3.5-5.0); ALBUMIN/GLOBULIN RATIO 0.9 (0.8-2.0); ANION GAP 18.3 mmol/L (8-16); CALCIUM 8.8 mg/dL (8.4-10.2); CREATININE, SERUM 7.02 mg/dL (0.57-1.11); POTASSIUM 4.3 mmol/L (3.5-5.1)
[2020-12-21] MEDS ORDERED: NIFEDIPINE CR 30 MG TAB PO ONE (13:45)
[2020-12-21] MEDS ORDERED: ASPIRIN 325 MG TAB PO ONE (14:00)
[2020-12-21] MEDS ORDERED: ASPIRIN 81 MG CHEW TAB PO ONE (14:00)
[2020-12-21] MEDS: HYDRALAZINE HCL 20 MG/ML VIAL IV PRN (16:04)
[2020-12-21 19:30] VITALS: BP 164/66
[2020-12-21 20:22] VITALS: BP 164/66
[2020-12-22] VITALS (8 sets, daily range): BP systolic 109–171; BP diastolic 65–83
[2020-12-22] MEDS: HYDRALAZINE HCL 20 MG/ML VIAL IV PRN (03:13)
[2020-12-22 06:05] LABS: BASOPHILS # (AUTO) 0.1 (0.0-0.1); BASOPHILS % 1.1 % (0.0-1.0); EOSINOPHILS # (AUTO) 0.6 (0.0-0.4); EOSINOPHILS % 5.5 % (0.0-6.0); HEMATOCRIT 31.1 % (34.2-44.1); HEMOGLOBIN 9.9 g/dL (12.0-16.0); LYMPHOCYTES # (AUTO) 2.1 (1.0-3.2); LYMPHOCYTES % 19.9 % (18.0-39.1); MEAN CORPUSCULAR HEMOGLOBIN 29.6 pg (28-32); MEAN CORPUSCULAR HGB CONC 31.8 g/dL (31-35); MEAN CORPUSCULAR VOLUME 93.1 fL (81-99); MONOCYTES # (AUTO) 0.7 (0.2-0.8); MONOCYTES % 6.6 % (4.4-11.3); NEUTROPHILS # (AUTO) 6.9 (2.1-6.9); NEUTROPHILS % 66.4 % (38.7-80.0); PLATELET COUNT 370 x10e3/uL (140-360); RED BLOOD COUNT 3.34 x10e6/uL (3.6-5.1); RED CELL DISTRIBUTION WIDTH 13.2 % (11.7-14.4)
[2020-12-22 06:24] LABS: ANION GAP 19.9 mmol/L (8-16); CALCIUM 8.6 mg/dL (8.4-10.2); CREATININE, SERUM 7.62 mg/dL (0.57-1.11); POTASSIUM 3.9 mmol/L (3.5-5.1)
[2020-12-22] MEDS ORDERED: SODIUM CHLORIDE 0.9% 1000ML 1,000 ML ONE (08:29)
[2020-12-22] MEDS ORDERED: ONDANSETRON HCL INJ 2MG/ML 2ML 2 MG/ML VIAL IV PRN (08:45)
[2020-12-22 14:36] LABS: CHOL/HDL RATIO 4.8 (3.0-3.6)
[2020-12-22] MEDS: HYDROCODONE/APAP 5MG-325MG TAB PO PRN (15:32)
[2020-12-22] MEDS: PANTOPRAZOLE SOD 40 MG TABEC PO SCH (15:33)
[2020-12-22] MEDS: ATORVASTATIN 40 MG TAB PO SCH (22:08)
[2020-12-23] VITALS (9 sets, daily range): BP systolic 120–173; BP diastolic 68–82
[2020-12-23 05:56] LABS: ANION GAP 17.1 mmol/L (8-16); CALCIUM 9.1 mg/dL (8.4-10.2); CREATININE, SERUM 5.09 mg/dL (0.57-1.11); POTASSIUM 4.1 mmol/L (3.5-5.1)
[2020-12-23] MEDS: HYDRALAZINE HCL 20 MG/ML VIAL IV PRN ×3 (06:20→22:16)
[2020-12-23] MEDS: PANTOPRAZOLE SOD 40 MG TABEC PO SCH (09:00)
[2020-12-23] MEDS: HYDROCODONE/APAP 5MG-325MG TAB PO PRN ×2 (09:00→18:10)
[2020-12-23] MEDS: ASPIRIN 325 MG TAB PO SCH (09:38)
[2020-12-23] MEDS: ATORVASTATIN 40 MG TAB PO SCH (21:00)
[2020-12-24] VITALS (8 sets, daily range): BP systolic 134–216; BP diastolic 64–97
[2020-12-24] MEDS: HYDRALAZINE HCL 20 MG/ML VIAL IV PRN ×2 (05:25→05:32)
[2020-12-24] MEDS: HYDROCODONE/APAP 5MG-325MG TAB PO PRN ×3 (05:51→20:24)
[2020-12-24] MEDS: PANTOPRAZOLE SOD 40 MG TABEC PO SCH (09:00)
[2020-12-24] MEDS ORDERED: SODIUM CHLORIDE 0.9% 250ML 500 ML IV PRN (09:15)
[2020-12-24] MEDS ORDERED: ALBUMIN 25% 12.5GM 0.25 GM/ML BTL IV PRN (09:15)
[2020-12-24] MEDS ORDERED: HEPARIN SOD (PORCINE) 1000 UNIT/ML SDV IV PRN (09:15)
[2020-12-24] MEDS ORDERED: SODIUM CHLORIDE 0.9% 1000ML 2,000 ML IV PRN (09:15)
[2020-12-24] MEDS: ASPIRIN 325 MG TAB PO SCH (09:33)
[2020-12-24] MEDS: CARVEDILOL 12.5 MG TAB PO SCH ×2 (11:50→17:16)
[2020-12-24] MEDS: ATORVASTATIN 40 MG TAB PO SCH (21:00)
[2020-12-25] VITALS (7 sets, daily range): BP systolic 145–207; BP diastolic 61–89
[2020-12-25] MEDS: HYDROCODONE/APAP 5MG-325MG TAB PO PRN ×3 (05:26→20:50)
[2020-12-25 06:13] LABS: ANION GAP 12.4 mmol/L (8-16); CALCIUM 8.9 mg/dL (8.4-10.2); CREATININE, SERUM 3.97 mg/dL (0.57-1.11); POTASSIUM 4.4 mmol/L (3.5-5.1)
[2020-12-25] MEDS: PANTOPRAZOLE SOD 40 MG TABEC PO SCH (09:00)
[2020-12-25] MEDS: ASPIRIN 325 MG TAB PO SCH (09:25)
[2020-12-25] MEDS: CARVEDILOL 12.5 MG TAB PO SCH ×2 (09:25→17:23)
[2020-12-25] MEDS: HYDRALAZINE HCL 20 MG/ML VIAL IV PRN ×2 (11:30→21:46)
[2020-12-25] MEDS: MUPIROCIN 2% OINT 22 GM TUBE TOP SCH (17:00)
[2020-12-25] MEDS: ATORVASTATIN 40 MG TAB PO SCH (21:12)
[2020-12-26] VITALS (9 sets, daily range): BP systolic 137–198; BP diastolic 62–94
[2020-12-26] MEDS: HYDROCODONE/APAP 5MG-325MG TAB PO PRN ×5 (04:04→22:47)
[2020-12-26] MEDS: HYDRALAZINE HCL 20 MG/ML VIAL IV PRN ×2 (05:54→11:30)
[2020-12-26 06:36] LABS: BASOPHILS # (AUTO) 0.1 (0.0-0.1); EOSINOPHILS # (AUTO) 0.8 (0.0-0.4); EOSINOPHILS % 8.8 % (0.0-6.0); HEMATOCRIT 29.6 % (34.2-44.1); HEMOGLOBIN 9.5 g/dL (12.0-16.0); LYMPHOCYTES # (AUTO) 2.4 (1.0-3.2); LYMPHOCYTES % 26.4 % (18.0-39.1); MEAN CORPUSCULAR HEMOGLOBIN 29.8 pg (28-32); MEAN CORPUSCULAR HGB CONC 32.1 g/dL (31-35); MEAN CORPUSCULAR VOLUME 92.8 fL (81-99); MONOCYTES # (AUTO) 0.8 (0.2-0.8); MONOCYTES % 8.6 % (4.4-11.3); NEUTROPHILS % 54.9 % (38.7-80.0); PLATELET COUNT 329 x10e3/uL (140-360); RED BLOOD COUNT 3.19 x10e6/uL (3.6-5.1); RED CELL DISTRIBUTION WIDTH 13.1 % (11.7-14.4)
[2020-12-26 07:00] LABS: ANION GAP 15.9 mmol/L (8-16); CALCIUM 9.1 mg/dL (8.4-10.2); CREATININE, SERUM 5.4 mg/dL (0.57-1.11); MAGNESIUM 1.7 MG/DL (1.3-2.1); PHOSPHORUS 4.7 MG/DL (2.3-4.7); POTASSIUM 4.9 mmol/L (3.5-5.1)
[2020-12-26] MEDS: ASPIRIN 325 MG TAB PO SCH (08:26)
[2020-12-26] MEDS: MUPIROCIN 2% OINT 22 GM TUBE TOP SCH ×2 (08:27→17:40)
[2020-12-26] MEDS: PANTOPRAZOLE SOD 40 MG TABEC PO SCH (08:27)
[2020-12-26] MEDS: CARVEDILOL 12.5 MG TAB PO SCH ×2 (08:27→17:00)
[2020-12-26] MEDS ORDERED: HYDROCODON-ACE1 EA11 PO (12:34)
[2020-12-26] MEDS: ATORVASTATIN 40 MG TAB PO SCH (21:51)
[2020-12-27 00:45] VITALS: BP 169/74
[2020-12-27] MEDS: HYDRALAZINE HCL 20 MG/ML VIAL IV PRN ×2 (00:58→07:51)
[2020-12-27] MEDS: HYDROCODONE/APAP 5MG-325MG TAB PO PRN ×2 (02:46→07:51)
[2020-12-27 04:37] VITALS: BP 154/72
[2020-12-27 07:50] VITALS: BP 173/81
[2020-12-27] MEDS: CARVEDILOL 12.5 MG TAB PO SCH (07:50)
[2020-12-27] MEDS: ASPIRIN 325 MG TAB PO SCH (07:50)
[2020-12-27] MEDS: MUPIROCIN 2% OINT 22 GM TUBE TOP SCH (07:51)
[2020-12-27] MEDS: PANTOPRAZOLE SOD 40 MG TABEC PO SCH (07:54)
== END 2020-12-27 08:20 | disposition home or self-care (01) | DRG 69 ==
LOC: ER 12:11 → ERHOLD 13:58 → MED/SURG3 19:54 → OBSVTOIN 12-22 15:01
PROVIDERS: ADMIT Internal Medicine; ATTEND Internal Medicine
PROC: 5A1D70Z Performance of Urinary Filtration, Intermittent, Less than 6 Hours Per Day (ICD-10-PCS; principal; 2020-12-22)
PROC: 5A1D70Z Performance of Urinary Filtration, Intermittent, Less than 6 Hours Per Day (ICD-10-PCS; 2020-12-24)
PROC: 5A1D70Z Performance of Urinary Filtration, Intermittent, Less than 6 Hours Per Day (ICD-10-PCS; 2020-12-26)
DX: G45.8 Other transient cerebral ischemic attacks and related syndromes (principal); N18.6 End stage renal disease; I12.0 Hypertensive chronic kidney disease with stage 5 chronic kidney disease or end stage renal disease; T87.44 Infection of amputation stump, left lower extremity; I25.10 Atherosclerotic heart disease of native coronary artery without angina pectoris; E11.22 Type 2 diabetes mellitus with diabetic chronic kidney disease; E11.51 Type 2 diabetes mellitus with diabetic peripheral angiopathy without gangrene; E11.621 Type 2 diabetes mellitus with foot ulcer; Z95.5 Presence of coronary angioplasty implant and graft; Z95.820 Peripheral vascular angioplasty status with implants and grafts; Z89.412 Acquired absence of left great toe; Z99.2 Dependence on renal dialysis; E78.5 Hyperlipidemia, unspecified; Z82.49 Family history of ischemic heart disease and other diseases of the circulatory system; Z83.3 Family history of diabetes mellitus; R53.81 Other malaise
CPT/HCPCS: 36415; 70450; 80048; 80053; 80061; 82948; 83735; 84100; 84484; 85025; 85610; 86705; 86707; 87350; 93005; 93306; 93880; 99284; G0378; J0360; J1644; J7030; U0002

== ENCOUNTER 2021-02-25 02:55 | Emergency (ER) | payer MEDICARE, OTHER ==
[~2021-02-25] VITALS: Ht 157.5 cm; Wt 54.4 kg
[~2021-02-25 02:55] MED LIST changes: +HYDROCODON-ACE1 EA11 PO
[2021-02-25] MEDS ORDERED: CLONIDINE HCL 0.2 MG TAB PO ONE (03:00)
[2021-02-25 05:32] VITALS: BP 167/81
== END 2021-02-25 05:15 | disposition home or self-care (01) ==
LOC: ER 03:15
DX: I10 Essential (primary) hypertension (principal); E11.9 Type 2 diabetes mellitus without complications
CPT/HCPCS: 99283

== ENCOUNTER 2021-04-19 04:50 | Emergency (ER) | payer MEDICARE, OTHER ==
[~2021-04-19] VITALS: Ht 157.5 cm; Wt 54.4 kg
[2021-04-19] MEDS ORDERED: HYDRALAZINE HCL 20 MG/ML VIAL IV STA ×2 (05:10→07:50)
[2021-04-19 06:34] LABS: BASOPHILS # (AUTO) 0.1 (0.0-0.1); BASOPHILS % 0.8 % (0.0-1.0); EOSINOPHILS # (AUTO) 0.3 (0.0-0.4); EOSINOPHILS % 3.2 % (0.0-6.0); HEMATOCRIT 40.5 % (34.2-44.1); HEMOGLOBIN 12.6 g/dL (12.0-16.0); LYMPHOCYTES # (AUTO) 1.9 (1.0-3.2); LYMPHOCYTES % 21.2 % (18.0-39.1); MEAN CORPUSCULAR HEMOGLOBIN 30.2 pg (28-32); MEAN CORPUSCULAR HGB CONC 31.1 g/dL (31-35); MEAN CORPUSCULAR VOLUME 97.1 fL (81-99); MONOCYTES # (AUTO) 0.6 (0.2-0.8); MONOCYTES % 6.3 % (4.4-11.3); NEUTROPHILS # (AUTO) 6.2 (2.1-6.9); NEUTROPHILS % 68.2 % (38.7-80.0); PLATELET COUNT 343 x10e3/uL (140-360); RED BLOOD COUNT 4.17 x10e6/uL (3.6-5.1); RED CELL DISTRIBUTION WIDTH 13.5 % (11.7-14.4)
[2021-04-19 07:03] LABS: CREATINE KINASE MB 3.2 ng/mL (0-5.0)
[2021-04-19 07:09] LABS: ALBUMIN 3.9 g/dL (3.5-5.0); ALBUMIN/GLOBULIN RATIO 1.1 (0.8-2.0); CALCIUM 9.1 mg/dL (8.4-10.2); CREATININE, SERUM 4.56 mg/dL (0.57-1.11)
[2021-04-19] MEDS ORDERED: CLONIDINE HCL 0.2 MG TAB PO ONE (08:00)
== END 2021-04-19 09:15 | disposition home or self-care (01) ==
LOC: ER 04:57
DX: E11.22 Type 2 diabetes mellitus with diabetic chronic kidney disease (principal); I12.0 Hypertensive chronic kidney disease with stage 5 chronic kidney disease or end stage renal disease; N18.6 End stage renal disease; Z90.5 Acquired absence of kidney; J90 Pleural effusion, not elsewhere classified; K80.20 Calculus of gallbladder without cholecystitis without obstruction; K43.9 Ventral hernia without obstruction or gangrene; D25.9 Leiomyoma of uterus, unspecified; Z88.8 Allergy status to other drugs, medicaments and biological substances; Z99.2 Dependence on renal dialysis; Z79.02 Long term (current) use of antithrombotics/antiplatelets; Z91.14 Patient's other noncompliance with medication regimen
CPT/HCPCS: 36415; 71045; 74176; 80053; 82550; 82553; 83880; 84484; 85025; 93005; 99284; J0360

== ENCOUNTER 2021-05-19 15:12 | Emergency (ER) | payer MEDICARE, OTHER ==
[~2021-05-19] VITALS: Ht 157.5 cm; Wt 54.4 kg
[2021-05-19 15:39] LABS: BASOPHILS # (AUTO) 0.1 (0.0-0.1); BASOPHILS % 0.6 % (0.0-1.0); EOSINOPHILS # (AUTO) 0.4 (0.0-0.4); HEMATOCRIT 35.4 % (34.2-44.1); HEMOGLOBIN 11.3 g/dL (12.0-16.0); LYMPHOCYTES # (AUTO) 2.1 (1.0-3.2); LYMPHOCYTES % 20.6 % (18.0-39.1); MEAN CORPUSCULAR HGB CONC 31.9 g/dL (31-35); MEAN CORPUSCULAR VOLUME 93.9 fL (81-99); MONOCYTES # (AUTO) 0.8 (0.2-0.8); MONOCYTES % 8.2 % (4.4-11.3); NEUTROPHILS # (AUTO) 6.8 (2.1-6.9); NEUTROPHILS % 66.3 % (38.7-80.0); PLATELET COUNT 326 x10e3/uL (140-360); RED BLOOD COUNT 3.77 x10e6/uL (3.6-5.1); RED CELL DISTRIBUTION WIDTH 13.5 % (11.7-14.4)
[2021-05-19 15:59] LABS: INR 0.9; PROTHROMBIN TIME 12.3 seconds (11.9-14.5)
[2021-05-19 16:10] LABS: ALBUMIN 3.7 g/dL (3.5-5.0); ALBUMIN/GLOBULIN RATIO 0.9 (0.8-2.0); ANION GAP 16.1 mmol/L (8-16); CALCIUM 9.3 mg/dL (8.4-10.2); CREATININE, SERUM 5.28 mg/dL (0.57-1.11); POTASSIUM 5.1 mmol/L (3.5-5.1)
[2021-05-19 16:17] LABS: CREATINE KINASE MB 2.5 ng/mL (0-5.0)
[2021-05-19 20:07] VITALS: BP 129/87
== END 2021-05-19 19:30 | disposition home or self-care (01) ==
LOC: ER 15:24
DX: E11.22 Type 2 diabetes mellitus with diabetic chronic kidney disease (principal); I12.0 Hypertensive chronic kidney disease with stage 5 chronic kidney disease or end stage renal disease; N18.6 End stage renal disease; M79.89 Other specified soft tissue disorders; Z99.2 Dependence on renal dialysis; Z85.828 Personal history of other malignant neoplasm of skin; Z89.412 Acquired absence of left great toe; Z90.5 Acquired absence of kidney; Z20.822 Contact with and (suspected) exposure to COVID-19
CPT/HCPCS: 36415; 71045; 80053; 82550; 82553; 83735; 84484; 85025; 85610; 85730; 93005; 93971; 99284; U0002

== ENCOUNTER 2021-06-09 11:17 | Emergency (ER) | payer MEDICARE, OTHER ==
[~2021-06-09] VITALS: Ht 157.5 cm; Wt 54.4 kg
[2021-06-09 12:03] LABS: BASOPHILS # (AUTO) 0.1 (0.0-0.1); BASOPHILS % 0.6 % (0.0-1.0); EOSINOPHILS # (AUTO) 0.2 (0.0-0.4); EOSINOPHILS % 1.7 % (0.0-6.0); HEMATOCRIT 36.4 % (34.2-44.1); HEMOGLOBIN 11.7 g/dL (12.0-16.0); LYMPHOCYTES # (AUTO) 1.4 (1.0-3.2); LYMPHOCYTES % 12.7 % (18.0-39.1); MEAN CORPUSCULAR HEMOGLOBIN 29.5 pg (28-32); MEAN CORPUSCULAR HGB CONC 32.1 g/dL (31-35); MEAN CORPUSCULAR VOLUME 91.9 fL (81-99); MONOCYTES # (AUTO) 0.9 (0.2-0.8); MONOCYTES % 8.3 % (4.4-11.3); NEUTROPHILS # (AUTO) 8.3 (2.1-6.9); NEUTROPHILS % 76.3 % (38.7-80.0); PLATELET COUNT 460 x10e3/uL (140-360); RED BLOOD COUNT 3.96 x10e6/uL (3.6-5.1); RED CELL DISTRIBUTION WIDTH 12.9 % (11.7-14.4)
[2021-06-09 13:15] LABS: CREATINE KINASE MB 1.3 ng/mL (0-5.0)
[2021-06-09 13:17] LABS: ALBUMIN/GLOBULIN RATIO 0.7 (0.8-2.0); ANION GAP 17.6 mmol/L (8-16); CALCIUM 8.9 mg/dL (8.4-10.2); CREATININE, SERUM 4.89 mg/dL (0.57-1.11); MAGNESIUM 2.2 MG/DL (1.3-2.1); POTASSIUM 3.6 mmol/L (3.5-5.1)
== END 2021-06-09 17:56 | disposition home or self-care (01) ==
LOC: ER 11:40
DX: I12.0 Hypertensive chronic kidney disease with stage 5 chronic kidney disease or end stage renal disease (principal); E11.22 Type 2 diabetes mellitus with diabetic chronic kidney disease; N18.6 End stage renal disease; Z99.2 Dependence on renal dialysis; Z85.828 Personal history of other malignant neoplasm of skin
CPT/HCPCS: 36415; 71045; 80053; 82550; 82553; 83735; 84484; 85025; 93005; 99284

== ENCOUNTER 2021-09-09 19:08 | Emergency (ER) | payer MEDICARE, OTHER ==
[~2021-09-09] VITALS: Ht 157.5 cm; Wt 54.4 kg
[2021-09-09 20:02] LABS: BASOPHILS # (AUTO) 0.1 (0.0-0.1); BASOPHILS % 0.9 % (0.0-1.0); EOSINOPHILS # (AUTO) 0.5 (0.0-0.4); EOSINOPHILS % 4.5 % (0.0-6.0); HEMATOCRIT 34.6 % (34.2-44.1); HEMOGLOBIN 10.6 g/dL (12.0-16.0); LYMPHOCYTES # (AUTO) 1.8 (1.0-3.2); LYMPHOCYTES % 15.4 % (18.0-39.1); MEAN CORPUSCULAR HEMOGLOBIN 30.2 pg (28-32); MEAN CORPUSCULAR HGB CONC 30.6 g/dL (31-35); MEAN CORPUSCULAR VOLUME 98.6 fL (81-99); MONOCYTES # (AUTO) 0.8 (0.2-0.8); MONOCYTES % 7.2 % (4.4-11.3); NEUTROPHILS # (AUTO) 8.4 (2.1-6.9); NEUTROPHILS % 71.7 % (38.7-80.0); PLATELET COUNT 431 x10e3/uL (140-360); RED BLOOD COUNT 3.51 x10e6/uL (3.6-5.1); RED CELL DISTRIBUTION WIDTH 14.6 % (11.7-14.4)
[2021-09-09 20:22] LABS: ALBUMIN 3.3 g/dL (3.5-5.0); ALBUMIN/GLOBULIN RATIO 0.8 (0.8-2.0); ANION GAP 16.3 mmol/L (8-16); CALCIUM 8.8 mg/dL (8.4-10.2); CREATININE, SERUM 5.48 mg/dL (0.57-1.11); POTASSIUM 4.3 mmol/L (3.5-5.1)
[2021-09-09 20:28] LABS: CREATINE KINASE MB 2.9 ng/mL (0-5.0)
== END 2021-09-09 21:23 | disposition home or self-care (01) ==
LOC: ER 19:18
DX: I12.0 Hypertensive chronic kidney disease with stage 5 chronic kidney disease or end stage renal disease (principal); E11.22 Type 2 diabetes mellitus with diabetic chronic kidney disease; N18.6 End stage renal disease; Z99.2 Dependence on renal dialysis; Z85.828 Personal history of other malignant neoplasm of skin; Z86.73 Personal history of transient ischemic attack (TIA), and cerebral infarction without residual deficits; R94.31 Abnormal electrocardiogram [ECG] [EKG]
CPT/HCPCS: 36415; 71045; 80053; 82550; 82553; 83880; 84484; 85025; 93005; 99284

== ENCOUNTER 2022-01-04 14:35 | Inpatient (IN) | payer MEDICARE, OTHER ==
[~2022-01-04] VITALS: Ht 157.5 cm; Wt 54.4 kg
[2022-01-04 16:41] LABS: BASOPHILS # (AUTO) 0.1 (0.0-0.1); BASOPHILS % 0.9 % (0.0-1.0); EOSINOPHILS # (AUTO) 0.4 (0.0-0.4); EOSINOPHILS % 5.1 % (0.0-6.0); HEMATOCRIT 32.1 % (34.2-44.1); HEMOGLOBIN 10.3 g/dL (12.0-16.0); LYMPHOCYTES # (AUTO) 1.1 (1.0-3.2); LYMPHOCYTES % 14.3 % (18.0-39.1); MEAN CORPUSCULAR HEMOGLOBIN 30.5 pg (28-32); MEAN CORPUSCULAR HGB CONC 32.1 g/dL (31-35); MONOCYTES # (AUTO) 0.4 (0.2-0.8); MONOCYTES % 4.8 % (4.4-11.3); NEUTROPHILS # (AUTO) 5.9 (2.1-6.9); NEUTROPHILS % 74.6 % (38.7-80.0); PLATELET COUNT 348 x10e3/uL (140-360); RED BLOOD COUNT 3.38 x10e6/uL (3.6-5.1); RED CELL DISTRIBUTION WIDTH 14.9 % (11.7-14.4)
[2022-01-04 17:00] LABS: ALBUMIN 2.4 g/dL (3.5-5.0); ALBUMIN/GLOBULIN RATIO 0.7 (0.8-2.0); ANION GAP 14.7 mmol/L (8-16); CALCIUM 7.7 mg/dL (8.4-10.2); CREATININE, SERUM 7.59 mg/dL (0.57-1.11); POTASSIUM 3.7 mmol/L (3.5-5.1)
[2022-01-04] MEDS ORDERED: SODIUM CHLORIDE FLUSH 10 ML SYR INJ PRN (18:00)
[2022-01-04] MEDS ORDERED: ACETAMINOPHEN 325 MG TAB PO PRN (20:30)
[2022-01-04] MEDS ORDERED: DEXTROSE 50% SYRINGE 50 ML IV PRN (20:30)
[2022-01-04] MEDS ORDERED: DOCUSATE SODIUM 100 MG CAP PO PRN (20:30)
[2022-01-04 20:39] LABS: CHOL/HDL RATIO 5.3 (3.0-3.6)
[2022-01-04] MEDS: INSULIN REGULAR, HUMAN 100 UNIT/1 ML SQ SCH (21:00)
[2022-01-04 21:07] VITALS: BP 138/73
[2022-01-04 21:10] VITALS: BP 138/73
[2022-01-04] MEDS ORDERED: HYDRALAZINE HCL25 MG PO (22:10)
[2022-01-04] MEDS ORDERED: CARVEDILOL12.5 MG PO (22:10)
[2022-01-04] MEDS ORDERED: HYDROCODON-ACE1 EA11 PO (23:30)
[2022-01-05] VITALS (8 sets, daily range): BP systolic 108–170; BP diastolic 65–88
[2022-01-05] MEDS: HYDROCODONE/APAP 5MG-325MG TAB PO PRN ×2 (00:10→12:50)
[2022-01-05 06:34] LABS: BASOPHILS # (AUTO) 0.1 (0.0-0.1); BASOPHILS % 0.9 % (0.0-1.0); EOSINOPHILS # (AUTO) 0.4 (0.0-0.4); EOSINOPHILS % 5.1 % (0.0-6.0); HEMATOCRIT 30.6 % (34.2-44.1); HEMOGLOBIN 9.7 g/dL (12.0-16.0); LYMPHOCYTES # (AUTO) 1.9 (1.0-3.2); LYMPHOCYTES % 26.3 % (18.0-39.1); MEAN CORPUSCULAR HEMOGLOBIN 30.4 pg (28-32); MEAN CORPUSCULAR HGB CONC 31.7 g/dL (31-35); MEAN CORPUSCULAR VOLUME 95.9 fL (81-99); MONOCYTES # (AUTO) 0.4 (0.2-0.8); MONOCYTES % 6.3 % (4.4-11.3); NEUTROPHILS # (AUTO) 4.3 (2.1-6.9); NEUTROPHILS % 61.1 % (38.7-80.0); PLATELET COUNT 331 x10e3/uL (140-360); RED BLOOD COUNT 3.19 x10e6/uL (3.6-5.1); RED CELL DISTRIBUTION WIDTH 14.8 % (11.7-14.4)
[2022-01-05 06:35] LABS: ALBUMIN 2.5 g/dL (3.5-5.0); ALBUMIN/GLOBULIN RATIO 0.9 (0.8-2.0); ANION GAP 11.5 mmol/L (8-16); CREATININE, SERUM 7.69 mg/dL (0.57-1.11); POTASSIUM 3.5 mmol/L (3.5-5.1)
[2022-01-05] MEDS: INSULIN REGULAR, HUMAN 100 UNIT/1 ML SQ SCH ×4 (07:30→20:39)
[2022-01-05] MEDS: SODIUM BICARBONATE 650 MG TAB PO SCH ×2 (09:02→18:27)
[2022-01-05] MEDS: DULOXETINE HCL 20 MG DELAYED RELEASE PO SCH (09:02)
[2022-01-05] MEDS: CLOPIDOGREL BISULFATE 75 MG TAB PO SCH (09:02)
[2022-01-05] MEDS: ATORVASTATIN 20 MG TAB PO SCH (09:02)
[2022-01-05] MEDS ORDERED: ALBUMIN 25% 12.5GM 0.25 GM/ML BTL IV PRN (12:45)
[2022-01-05] MEDS ORDERED: SODIUM CHLORIDE 0.9% 1000ML 2,000 ML IV PRN (12:45)
[2022-01-05] MEDS ORDERED: HEPARIN SOD (PORCINE) 1000 UNIT/ML SDV IV PRN (12:45)
[2022-01-05] MEDS ORDERED: SODIUM CHLORIDE 0.9% 250ML 500 ML IV PRN (12:45)
[2022-01-05] MEDS ORDERED: SODIUM CHLORIDE 0.9% 1000ML 1,000 ML ONE (14:18)
[2022-01-05] MEDS: HYDRALAZINE HCL 25 MG TAB PO SCH ×2 (20:36→20:39)
[2022-01-05] MEDS: CARVEDILOL 12.5 MG TAB PO SCH (20:36)
[2022-01-06] VITALS (10 sets, daily range): BP systolic 110–180; BP diastolic 45–97
[2022-01-06] MEDS: HYDRALAZINE HCL 25 MG TAB PO SCH ×3 (05:30→20:28)
[2022-01-06] MEDS: CARVEDILOL 12.5 MG TAB PO SCH ×2 (05:30→16:49)
[2022-01-06] MEDS: INSULIN REGULAR, HUMAN 100 UNIT/1 ML SQ SCH ×4 (07:30→20:15)
[2022-01-06 08:15] LABS: BASOPHILS # (AUTO) 0.1 (0.0-0.1); BASOPHILS % 0.8 % (0.0-1.0); EOSINOPHILS # (AUTO) 0.4 (0.0-0.4); EOSINOPHILS % 4.7 % (0.0-6.0); HEMATOCRIT 29.3 % (34.2-44.1); HEMOGLOBIN 9.3 g/dL (12.0-16.0); LYMPHOCYTES # (AUTO) 1.5 (1.0-3.2); LYMPHOCYTES % 19.4 % (18.0-39.1); MEAN CORPUSCULAR HEMOGLOBIN 30.4 pg (28-32); MEAN CORPUSCULAR HGB CONC 31.7 g/dL (31-35); MEAN CORPUSCULAR VOLUME 95.8 fL (81-99); MONOCYTES # (AUTO) 0.5 (0.2-0.8); MONOCYTES % 6.2 % (4.4-11.3); NEUTROPHILS # (AUTO) 5.2 (2.1-6.9); NEUTROPHILS % 68.4 % (38.7-80.0); PLATELET COUNT 290 x10e3/uL (140-360); RED BLOOD COUNT 3.06 x10e6/uL (3.6-5.1); RED CELL DISTRIBUTION WIDTH 15.1 % (11.7-14.4)
[2022-01-06 08:34] LABS: ANION GAP 11.9 mmol/L (8-16); CALCIUM 7.3 mg/dL (8.4-10.2); CREATININE, SERUM 4.54 mg/dL (0.57-1.11); POTASSIUM 3.9 mmol/L (3.5-5.1)
[2022-01-06] MEDS: SODIUM BICARBONATE 650 MG TAB PO SCH ×2 (09:00→16:49)
[2022-01-06] MEDS: CLOPIDOGREL BISULFATE 75 MG TAB PO SCH (09:00)
[2022-01-06] MEDS ORDERED: CARVEDILOL 12.5 MG TAB PO ONE (09:00)
[2022-01-06] MEDS: ATORVASTATIN 20 MG TAB PO SCH (09:00)
[2022-01-06] MEDS: DULOXETINE HCL 20 MG DELAYED RELEASE PO SCH (09:00)
[2022-01-06 09:12] LABS: ALBUMIN 2.2 g/dL (3.5-5.0); ALBUMIN/GLOBULIN RATIO 0.7 (0.8-2.0); ALKALINE PHOSPHATASE 44 IU/L (40-150); ANION GAP 11.9 mmol/L (8-16); BLOOD UREA NITROGEN 26 mg/dL (7-26); BUN/CREATININE RATIO 6 (6-25); CALCIUM 7.3 mg/dL (8.4-10.2); CARBON DIOXIDE 24 mmol/L (22-29); CHLORIDE 107 mmol/L (98-107); CREATININE, SERUM 4.54 mg/dL (0.57-1.11); GLUCOSE 107 mg/dL (74-118); POTASSIUM 3.9 mmol/L (3.5-5.1); SODIUM 139 mmol/L (136-145)
[2022-01-06 09:14] LABS: ALANINE AMINOTRANSFERASE < 6 IU/L (0-55)
[2022-01-06] MEDS ORDERED: HEPARIN SOD (PORCINE) 1000 UNIT/ML SDV IV PRN (13:30)
[2022-01-06] MEDS: HYDROCODONE/APAP 5MG-325MG TAB PO PRN (17:22)
[2022-01-06] MEDS: ONDANSETRON HCL INJ 2MG/ML 2ML 2 MG/ML VIAL IV PRN (17:22)
[2022-01-07] VITALS (8 sets, daily range): BP systolic 134–180; BP diastolic 71–89
[2022-01-07] MEDS: INSULIN REGULAR, HUMAN 100 UNIT/1 ML SQ SCH ×4 (07:30→20:51)
[2022-01-07] MEDS: DULOXETINE HCL 20 MG DELAYED RELEASE PO SCH (09:00)
[2022-01-07] MEDS: SODIUM BICARBONATE 650 MG TAB PO SCH ×2 (09:00→16:47)
[2022-01-07] MEDS: ATORVASTATIN 20 MG TAB PO SCH (09:00)
[2022-01-07] MEDS: HYDRALAZINE HCL 25 MG TAB PO SCH ×3 (09:47→20:50)
[2022-01-07] MEDS: CARVEDILOL 12.5 MG TAB PO SCH ×2 (09:47→16:55)
[2022-01-07] MEDS: CLOPIDOGREL BISULFATE 75 MG TAB PO SCH (09:48)
[2022-01-07] MEDS: HYDROCODONE/APAP 5MG-325MG TAB PO PRN ×2 (09:55→22:04)
[2022-01-07] MEDS: ONDANSETRON HCL INJ 2MG/ML 2ML 2 MG/ML VIAL IV PRN (13:58)
[2022-01-08] VITALS (7 sets, daily range): BP systolic 145–176; BP diastolic 72–93
[2022-01-08] MEDS: HYDROCODONE/APAP 5MG-325MG TAB PO PRN ×2 (05:11→15:50)
[2022-01-08] MEDS: INSULIN REGULAR, HUMAN 100 UNIT/1 ML SQ SCH ×4 (07:30→20:49)
[2022-01-08] MEDS: HYDRALAZINE HCL 25 MG TAB PO SCH ×3 (08:52→20:48)
[2022-01-08] MEDS: ATORVASTATIN 20 MG TAB PO SCH (08:53)
[2022-01-08] MEDS: DULOXETINE HCL 20 MG DELAYED RELEASE PO SCH (08:53)
[2022-01-08] MEDS: SODIUM BICARBONATE 650 MG TAB PO SCH ×2 (08:53→16:56)
[2022-01-08] MEDS: CLOPIDOGREL BISULFATE 75 MG TAB PO SCH (08:53)
[2022-01-08] MEDS: CARVEDILOL 12.5 MG TAB PO SCH ×2 (08:53→16:56)
[2022-01-08] MEDS ORDERED: SODIUM CHLORIDE 0.9% 1000ML 1,000 ML ONE (09:08)
[2022-01-08] MEDS ORDERED: HEPARIN SOD (PORCINE) 1000 UNIT/ML SDV IV PRN (14:15)
[2022-01-08] MEDS ORDERED: ALPRAZOLAM 0.5 MG TAB PO SCH (19:15)
[2022-01-09] VITALS (8 sets, daily range): BP systolic 128–191; BP diastolic 64–85
[2022-01-09] MEDS: HYDROCODONE/APAP 5MG-325MG TAB PO PRN ×3 (03:00→21:07)
[2022-01-09] MEDS: INSULIN REGULAR, HUMAN 100 UNIT/1 ML SQ SCH ×4 (07:30→20:56)
[2022-01-09] MEDS: SODIUM BICARBONATE 650 MG TAB PO SCH ×2 (09:00→16:48)
[2022-01-09] MEDS: CARVEDILOL 12.5 MG TAB PO SCH ×2 (09:53→16:48)
[2022-01-09] MEDS: ATORVASTATIN 20 MG TAB PO SCH (09:53)
[2022-01-09] MEDS: CLOPIDOGREL BISULFATE 75 MG TAB PO SCH (09:53)
[2022-01-09] MEDS: HYDRALAZINE HCL 25 MG TAB PO SCH ×2 (10:11→17:18)
[2022-01-09] MEDS: LOSARTAN POTASSIUM 25 MG TAB PO SCH (10:30)
[2022-01-09] MEDS ORDERED: HYDRALAZINE HCL 25 MG TAB PO SCH (15:00)
[2022-01-10] VITALS (7 sets, daily range): BP systolic 119–160; BP diastolic 58–70
[2022-01-10] MEDS: HYDRALAZINE HCL 25 MG TAB PO SCH ×4 (05:29→18:00)
[2022-01-10] MEDS: HYDROCODONE/APAP 5MG-325MG TAB PO PRN ×2 (05:30→16:10)
[2022-01-10] MEDS: INSULIN REGULAR, HUMAN 100 UNIT/1 ML SQ SCH ×4 (07:30→21:00)
[2022-01-10] MEDS: CARVEDILOL 12.5 MG TAB PO SCH ×2 (09:00→16:57)
[2022-01-10] MEDS: LOSARTAN POTASSIUM 25 MG TAB PO SCH (09:00)
[2022-01-10] MEDS: ATORVASTATIN 20 MG TAB PO SCH (09:00)
[2022-01-10] MEDS: SODIUM BICARBONATE 650 MG TAB PO SCH ×2 (09:20→17:00)
[2022-01-10] MEDS: CLOPIDOGREL BISULFATE 75 MG TAB PO SCH (09:20)
[2022-01-10 09:51] LABS: BASOPHILS # (AUTO) 0.1 (0.0-0.1); BASOPHILS % 0.9 % (0.0-1.0); EOSINOPHILS # (AUTO) 0.5 (0.0-0.4); EOSINOPHILS % 6.4 % (0.0-6.0); HEMATOCRIT 28.9 % (34.2-44.1); HEMOGLOBIN 8.5 g/dL (12.0-16.0); LYMPHOCYTES % 25.9 % (18.0-39.1); MEAN CORPUSCULAR HEMOGLOBIN 30.5 pg (28-32); MEAN CORPUSCULAR HGB CONC 29.4 g/dL (31-35); MEAN CORPUSCULAR VOLUME 103.6 fL (81-99); MONOCYTES # (AUTO) 0.6 (0.2-0.8); MONOCYTES % 7.9 % (4.4-11.3); NEUTROPHILS # (AUTO) 4.5 (2.1-6.9); NEUTROPHILS % 58.6 % (38.7-80.0); PLATELET COUNT 232 x10e3/uL (140-360); RED BLOOD COUNT 2.79 x10e6/uL (3.6-5.1); RED CELL DISTRIBUTION WIDTH 14.8 % (11.7-14.4)
[2022-01-10 10:00] LABS: ALBUMIN 2.4 g/dL (3.5-5.0); ALKALINE PHOSPHATASE 44 IU/L (40-150); ANION GAP 9.9 mmol/L (8-16); BLOOD UREA NITROGEN 26 mg/dL (7-26); BUN/CREATININE RATIO 6 (6-25); CARBON DIOXIDE 28 mmol/L (22-29); CHLORIDE 104 mmol/L (98-107); GLUCOSE 75 mg/dL (74-118); POTASSIUM 4.9 mmol/L (3.5-5.1); SODIUM 137 mmol/L (136-145)
[2022-01-10 10:01] LABS: ALANINE AMINOTRANSFERASE < 6 IU/L (0-55)
[2022-01-11] VITALS (8 sets, daily range): BP systolic 127–189; BP diastolic 50–85
[2022-01-11] MEDS: HYDROCODONE/APAP 5MG-325MG TAB PO PRN ×3 (00:59→20:24)
[2022-01-11] MEDS: HYDRALAZINE HCL 25 MG TAB PO SCH ×4 (05:33→18:00)
[2022-01-11 06:49] LABS: BASOPHILS # (AUTO) 0.1 (0.0-0.1); BASOPHILS % 0.9 % (0.0-1.0); EOSINOPHILS # (AUTO) 0.4 (0.0-0.4); EOSINOPHILS % 6.4 % (0.0-6.0); HEMATOCRIT 29.2 % (34.2-44.1); HEMOGLOBIN 8.8 g/dL (12.0-16.0); LYMPHOCYTES # (AUTO) 1.7 (1.0-3.2); LYMPHOCYTES % 24.4 % (18.0-39.1); MEAN CORPUSCULAR HEMOGLOBIN 30.6 pg (28-32); MEAN CORPUSCULAR HGB CONC 30.1 g/dL (31-35); MEAN CORPUSCULAR VOLUME 101.4 fL (81-99); MONOCYTES # (AUTO) 0.6 (0.2-0.8); MONOCYTES % 8.7 % (4.4-11.3); NEUTROPHILS # (AUTO) 4.1 (2.1-6.9); NEUTROPHILS % 59.3 % (38.7-80.0); PLATELET COUNT 230 x10e3/uL (140-360); RED BLOOD COUNT 2.88 x10e6/uL (3.6-5.1); RED CELL DISTRIBUTION WIDTH 14.4 % (11.7-14.4)
[2022-01-11 07:19] LABS: ANION GAP 10.3 mmol/L (8-16); CREATININE, SERUM 3.29 mg/dL (0.57-1.11); POTASSIUM 4.3 mmol/L (3.5-5.1)
[2022-01-11] MEDS: INSULIN REGULAR, HUMAN 100 UNIT/1 ML SQ SCH ×4 (07:30→21:00)
[2022-01-11] MEDS: CLOPIDOGREL BISULFATE 75 MG TAB PO SCH (09:11)
[2022-01-11] MEDS: SODIUM BICARBONATE 650 MG TAB PO SCH ×2 (09:11→17:00)
[2022-01-11] MEDS: LOSARTAN POTASSIUM 25 MG TAB PO SCH (09:11)
[2022-01-11] MEDS: ATORVASTATIN 20 MG TAB PO SCH (09:11)
[2022-01-11] MEDS: CARVEDILOL 12.5 MG TAB PO SCH ×2 (09:12→17:20)
[2022-01-11] MEDS ORDERED: ONDANSETRON HCL 4 MG ORAL DISINTEGRATING TAB PO PRN (11:30)
[2022-01-12] VITALS (8 sets, daily range): BP systolic 137–173; BP diastolic 56–90
[2022-01-12] MEDS: HYDRALAZINE HCL 25 MG TAB PO SCH ×5 (00:04→23:56)
[2022-01-12] MEDS: HYDROCODONE/APAP 5MG-325MG TAB PO PRN ×3 (03:02→17:19)
[2022-01-12 06:08] LABS: BASOPHILS # (AUTO) 0.1 (0.0-0.1); EOSINOPHILS # (AUTO) 0.5 (0.0-0.4); EOSINOPHILS % 6.4 % (0.0-6.0); HEMATOCRIT 29.6 % (34.2-44.1); HEMOGLOBIN 8.7 g/dL (12.0-16.0); LYMPHOCYTES # (AUTO) 2.1 (1.0-3.2); LYMPHOCYTES % 26.9 % (18.0-39.1); MEAN CORPUSCULAR HGB CONC 29.4 g/dL (31-35); MEAN CORPUSCULAR VOLUME 102.1 fL (81-99); MONOCYTES # (AUTO) 0.6 (0.2-0.8); NEUTROPHILS # (AUTO) 4.5 (2.1-6.9); NEUTROPHILS % 57.4 % (38.7-80.0); PLATELET COUNT 240 x10e3/uL (140-360); RED CELL DISTRIBUTION WIDTH 14.2 % (11.7-14.4)
[2022-01-12 06:38] LABS: CALCIUM 7.6 mg/dL (8.4-10.2); CREATININE, SERUM 4.7 mg/dL (0.57-1.11); MAGNESIUM 2.2 MG/DL (1.3-2.1); PHOSPHORUS 3.7 MG/DL (2.3-4.7)
[2022-01-12] MEDS: INSULIN REGULAR, HUMAN 100 UNIT/1 ML SQ SCH ×4 (07:30→21:00)
[2022-01-12] MEDS: CARVEDILOL 12.5 MG TAB PO SCH ×2 (08:50→17:20)
[2022-01-12] MEDS: LOSARTAN POTASSIUM 25 MG TAB PO SCH (08:51)
[2022-01-12] MEDS: CLOPIDOGREL BISULFATE 75 MG TAB PO SCH (08:52)
[2022-01-12] MEDS: SODIUM BICARBONATE 650 MG TAB PO SCH ×2 (08:52→17:00)
[2022-01-12] MEDS: ATORVASTATIN 20 MG TAB PO SCH (08:52)
[2022-01-12] MEDS ORDERED: HEPARIN SOD (PORCINE) 1000 UNIT/ML SDV IV PRN (11:00)
[2022-01-13] VITALS (7 sets, daily range): BP systolic 129–193; BP diastolic 54–78
[2022-01-13] MEDS: HYDRALAZINE HCL 25 MG TAB PO SCH ×3 (05:45→17:37)
[2022-01-13] MEDS: HYDROCODONE/APAP 5MG-325MG TAB PO PRN ×3 (05:47→21:42)
[2022-01-13 06:13] LABS: ANION GAP 11.7 mmol/L (8-16); CALCIUM 7.7 mg/dL (8.4-10.2); CREATININE, SERUM 3.34 mg/dL (0.57-1.11); POTASSIUM 4.7 mmol/L (3.5-5.1)
[2022-01-13] MEDS: INSULIN REGULAR, HUMAN 100 UNIT/1 ML SQ SCH ×4 (07:30→21:00)
[2022-01-13] MEDS: CARVEDILOL 12.5 MG TAB PO SCH ×2 (08:32→17:36)
[2022-01-13] MEDS: SODIUM BICARBONATE 650 MG TAB PO SCH ×2 (08:33→17:00)
[2022-01-13] MEDS: ATORVASTATIN 20 MG TAB PO SCH (08:33)
[2022-01-13] MEDS: CLOPIDOGREL BISULFATE 75 MG TAB PO SCH (08:33)
[2022-01-13] MEDS: LOSARTAN POTASSIUM 100 MG TAB PO SCH (08:33)
[2022-01-14 04:00] VITALS: BP 198/86
[2022-01-14] MEDS: HYDRALAZINE HCL 25 MG TAB PO SCH ×2 (05:18)
[2022-01-14 06:52] LABS: BASOPHILS # (AUTO) 0.1 (0.0-0.1); BASOPHILS % 0.8 % (0.0-1.0); EOSINOPHILS # (AUTO) 0.5 (0.0-0.4); EOSINOPHILS % 5.6 % (0.0-6.0); HEMATOCRIT 28.8 % (34.2-44.1); HEMOGLOBIN 8.6 g/dL (12.0-16.0); LYMPHOCYTES # (AUTO) 2.1 (1.0-3.2); LYMPHOCYTES % 25.5 % (18.0-39.1); MEAN CORPUSCULAR HEMOGLOBIN 30.3 pg (28-32); MEAN CORPUSCULAR HGB CONC 29.9 g/dL (31-35); MEAN CORPUSCULAR VOLUME 101.4 fL (81-99); MONOCYTES # (AUTO) 0.6 (0.2-0.8); MONOCYTES % 7.7 % (4.4-11.3); NEUTROPHILS % 60.2 % (38.7-80.0); PLATELET COUNT 261 x10e3/uL (140-360); RED BLOOD COUNT 2.84 x10e6/uL (3.6-5.1)
[2022-01-14] MEDS: INSULIN REGULAR, HUMAN 100 UNIT/1 ML SQ SCH ×4 (07:30→21:00)
[2022-01-14 07:42] LABS: CALCIUM 7.7 mg/dL (8.4-10.2); CREATININE, SERUM 4.67 mg/dL (0.57-1.11); MAGNESIUM 2.1 MG/DL (1.3-2.1)
[2022-01-14 08:17] VITALS: BP 179/77
[2022-01-14 08:19] VITALS: BP 179/77
[2022-01-14] MEDS: SODIUM BICARBONATE 650 MG TAB PO SCH ×2 (09:00→17:00)
[2022-01-14] MEDS: ATORVASTATIN 20 MG TAB PO SCH (09:00)
[2022-01-14] MEDS: LOSARTAN POTASSIUM 100 MG TAB PO SCH (09:35)
[2022-01-14] MEDS: CLOPIDOGREL BISULFATE 75 MG TAB PO SCH (09:35)
[2022-01-14] MEDS: CARVEDILOL 12.5 MG TAB PO SCH ×2 (09:36→18:30)
[2022-01-14 11:31] VITALS: BP 130/42
[2022-01-14] MEDS: HYDRALAZINE HCL 100 MG TABLET PO SCH ×3 (11:41→23:58)
[2022-01-14] MEDS: HYDROCODONE/APAP 5MG-325MG TAB PO PRN ×3 (11:42→23:59)
[2022-01-14 16:06] VITALS: BP 143/68
[2022-01-14] MEDS ORDERED: COZAAR100 MG PO (17:41)
[2022-01-14] MEDS ORDERED: LIPITOR20 MG PO (17:41)
[2022-01-14] MEDS ORDERED: SODIUM BICARBO650 MG PO (17:41)
[2022-01-14] MEDS ORDERED: COREG12.5 MG PO (17:41)
[2022-01-14] MEDS ORDERED: HYDRALAZINE HC100 MG PO (17:41)
[2022-01-14 20:00] VITALS: BP 159/76
[2022-01-15] VITALS: BP 194/90
[2022-01-15 04:00] VITALS: BP 175/80
[2022-01-15] MEDS: HYDRALAZINE HCL 100 MG TABLET PO SCH ×3 (05:35→17:15)
[2022-01-15] MEDS: HYDROCODONE/APAP 5MG-325MG TAB PO PRN ×3 (06:19→22:24)
[2022-01-15 06:59] LABS: ANION GAP 10.5 mmol/L (8-16); CALCIUM 7.6 mg/dL (8.4-10.2); CREATININE, SERUM 2.82 mg/dL (0.57-1.11); POTASSIUM 4.5 mmol/L (3.5-5.1)
[2022-01-15] MEDS: INSULIN REGULAR, HUMAN 100 UNIT/1 ML SQ SCH ×4 (07:30→21:00)
[2022-01-15 08:00] VITALS: BP 164/81
[2022-01-15] MEDS: SODIUM BICARBONATE 650 MG TAB PO SCH ×2 (08:57→16:12)
[2022-01-15] MEDS: ATORVASTATIN 20 MG TAB PO SCH (08:57)
[2022-01-15] MEDS: CLOPIDOGREL BISULFATE 75 MG TAB PO SCH (08:57)
[2022-01-15] MEDS: CARVEDILOL 12.5 MG TAB PO SCH ×2 (08:57→16:12)
[2022-01-15] MEDS: LOSARTAN POTASSIUM 100 MG TAB PO SCH (08:57)
[2022-01-15 12:00] VITALS: BP 147/70
[2022-01-15 16:00] VITALS: BP 155/67
[2022-01-15 20:00] VITALS: BP 151/72
[2022-01-16] VITALS (8 sets, daily range): BP systolic 147–192; BP diastolic 66–84
[2022-01-16] MEDS: HYDRALAZINE HCL 100 MG TABLET PO SCH ×4 (02:00→18:28)
[2022-01-16] MEDS: HYDROCODONE/APAP 5MG-325MG TAB PO PRN ×3 (05:10→20:06)
[2022-01-16] MEDS: INSULIN REGULAR, HUMAN 100 UNIT/1 ML SQ SCH ×4 (07:30→21:00)
[2022-01-16] MEDS: SODIUM BICARBONATE 650 MG TAB PO SCH ×2 (09:07→16:20)
[2022-01-16] MEDS: LOSARTAN POTASSIUM 100 MG TAB PO SCH (09:07)
[2022-01-16] MEDS: ATORVASTATIN 20 MG TAB PO SCH (09:07)
[2022-01-16] MEDS: CARVEDILOL 12.5 MG TAB PO SCH ×2 (09:07→16:20)
[2022-01-16] MEDS: CLOPIDOGREL BISULFATE 75 MG TAB PO SCH (09:07)
[2022-01-16] MEDS: ISOSORBIDE DINITRATE 20 MG TAB PO SCH ×3 (14:30→21:00)
[2022-01-17] VITALS (8 sets, daily range): BP systolic 122–185; BP diastolic 55–80
[2022-01-17] MEDS: HYDRALAZINE HCL 100 MG TABLET PO SCH ×6 (06:00→17:45)
[2022-01-17] MEDS: HYDROCODONE/APAP 5MG-325MG TAB PO PRN ×3 (06:10→20:55)
[2022-01-17 06:43] LABS: BASOPHILS # (AUTO) 0.1 (0.0-0.1); BASOPHILS % 0.6 % (0.0-1.0); EOSINOPHILS # (AUTO) 0.5 (0.0-0.4); EOSINOPHILS % 6.1 % (0.0-6.0); HEMATOCRIT 25.6 % (34.2-44.1); HEMOGLOBIN 7.5 g/dL (12.0-16.0); LYMPHOCYTES % 26.1 % (18.0-39.1); MEAN CORPUSCULAR HEMOGLOBIN 30.6 pg (28-32); MEAN CORPUSCULAR HGB CONC 29.3 g/dL (31-35); MEAN CORPUSCULAR VOLUME 104.5 fL (81-99); MONOCYTES # (AUTO) 0.6 (0.2-0.8); MONOCYTES % 7.3 % (4.4-11.3); NEUTROPHILS # (AUTO) 4.7 (2.1-6.9); NEUTROPHILS % 59.6 % (38.7-80.0); PLATELET COUNT 278 x10e3/uL (140-360); RED BLOOD COUNT 2.45 x10e6/uL (3.6-5.1); RED CELL DISTRIBUTION WIDTH 14.1 % (11.7-14.4)
[2022-01-17] MEDS: INSULIN REGULAR, HUMAN 100 UNIT/1 ML SQ SCH ×4 (07:30→21:00)
[2022-01-17 07:37] LABS: ANION GAP 11.4 mmol/L (8-16); CALCIUM 8.1 mg/dL (8.4-10.2); CREATININE, SERUM 5.06 mg/dL (0.57-1.11); POTASSIUM 5.4 mmol/L (3.5-5.1)
[2022-01-17] MEDS: ATORVASTATIN 20 MG TAB PO SCH (09:17)
[2022-01-17] MEDS: CARVEDILOL 12.5 MG TAB PO SCH ×2 (09:17→16:28)
[2022-01-17] MEDS: ISOSORBIDE DINITRATE 20 MG TAB PO SCH ×3 (09:17→20:54)
[2022-01-17] MEDS: LOSARTAN POTASSIUM 100 MG TAB PO SCH (09:17)
[2022-01-17] MEDS: CLOPIDOGREL BISULFATE 75 MG TAB PO SCH (09:18)
[2022-01-17] MEDS: SODIUM BICARBONATE 650 MG TAB PO SCH ×2 (09:18→16:29)
[2022-01-17] MEDS: NIFEDIPINE CR 30 MG TAB PO SCH ×2 (11:45→16:28)
[2022-01-17] MEDS ORDERED: SODIUM CHLORIDE 0.9% 250ML 250 ML IV ONE (12:15)
[2022-01-17] MEDS ORDERED: HEPARIN SOD (PORCINE) 1000 UNIT/ML SDV IV PRN (12:45)
[2022-01-17] MEDS ORDERED: SODIUM CHLORIDE 0.9% 1000ML 2,000 ML IV PRN (12:45)
[2022-01-18] MEDS: HYDRALAZINE HCL 100 MG TABLET PO SCH ×4 (00:50→16:54)
[2022-01-18 02:39] VITALS: BP 153/75
[2022-01-18] MEDS: HYDROCODONE/APAP 5MG-325MG TAB PO PRN ×2 (02:45→09:51)
[2022-01-18 05:55] VITALS: BP 156/74
[2022-01-18 06:20] LABS: ANION GAP 10.9 mmol/L (8-16); CALCIUM 7.6 mg/dL (8.4-10.2); CREATININE, SERUM 3.47 mg/dL (0.57-1.11); POTASSIUM 4.9 mmol/L (3.5-5.1)
[2022-01-18 07:22] LABS: INR 0.84; PROTHROMBIN TIME 12.3 seconds (11.9-14.5)
[2022-01-18 07:23] LABS: PARTIAL THROMBOPLASTIN TIME 27.2 seconds (23.8-35.5)
[2022-01-18] MEDS: INSULIN REGULAR, HUMAN 100 UNIT/1 ML SQ SCH ×3 (07:30→16:13)
[2022-01-18 08:14] VITALS: BP 156/74
[2022-01-18 08:33] VITALS: BP 158/69
[2022-01-18] MEDS ORDERED: ISORDIL20 MG PO (08:35)
[2022-01-18] MEDS ORDERED: NIFEDIPINE ER30 M1 PO (08:35)
[2022-01-18] MEDS: ATORVASTATIN 20 MG TAB PO SCH (09:55)
[2022-01-18] MEDS: CLOPIDOGREL BISULFATE 75 MG TAB PO SCH (09:55)
[2022-01-18] MEDS: NIFEDIPINE CR 30 MG TAB PO SCH (09:55)
[2022-01-18] MEDS: LOSARTAN POTASSIUM 100 MG TAB PO SCH (09:55)
[2022-01-18] MEDS: SODIUM BICARBONATE 650 MG TAB PO SCH ×2 (09:55→16:53)
[2022-01-18] MEDS: CARVEDILOL 12.5 MG TAB PO SCH ×2 (09:55→16:53)
[2022-01-18] MEDS: ISOSORBIDE DINITRATE 20 MG TAB PO SCH ×2 (09:55→16:53)
[2022-01-18 12:00] VITALS: BP 146/62
[2022-01-18 16:00] VITALS: BP 128/58
== END 2022-01-18 18:47 | disposition home or self-care (01) | DRG 291 ==
LOC: ER 14:42 → ERHOLD 18:00 → INTOOBSV 18:00 → MED/SURG3 20:58 → OBSVTOIN 01-06 14:19
PROVIDERS: ADMIT Internal Medicine; ATTEND Internal Medicine
PROC: 5A1D70Z Performance of Urinary Filtration, Intermittent, Less than 6 Hours Per Day (ICD-10-PCS; 2022-01-05)
PROC: 30243N1 Transfusion of Nonautologous Red Blood Cells into Central Vein, Percutaneous Approach (ICD-10-PCS; 2022-01-17)
PROC: 0JH63XZ Insertion of Tunneled Vascular Access Device into Chest Subcutaneous Tissue and Fascia, Percutaneous Approach (ICD-10-PCS; principal; 2022-01-18)
PROC: 02HV33Z Insertion of Infusion Device into Superior Vena Cava, Percutaneous Approach (ICD-10-PCS; 2022-01-18)
PROC: 0JPV3XZ Removal of Tunneled Vascular Access Device from Upper Extremity Subcutaneous Tissue and Fascia, Percutaneous Approach (ICD-10-PCS; 2022-01-18)
PROC: 02PY33Z Removal of Infusion Device from Great Vessel, Percutaneous Approach (ICD-10-PCS; 2022-01-18)
DX: I13.2 Hypertensive heart and chronic kidney disease with heart failure and with stage 5 chronic kidney disease, or end stage renal disease (principal); N18.6 End stage renal disease; I50.33 Acute on chronic diastolic (congestive) heart failure; E87.2 Acidosis; D63.1 Anemia in chronic kidney disease; Z99.2 Dependence on renal dialysis; E11.22 Type 2 diabetes mellitus with diabetic chronic kidney disease; Z86.73 Personal history of transient ischemic attack (TIA), and cerebral infarction without residual deficits; Z90.5 Acquired absence of kidney; Z85.828 Personal history of other malignant neoplasm of skin; Z89.412 Acquired absence of left great toe; Z88.8 Allergy status to other drugs, medicaments and biological substances; Z91.15 Patient's noncompliance with renal dialysis; Z95.820 Peripheral vascular angioplasty status with implants and grafts; H54.8 Legal blindness, as defined in USA; E87.5 Hyperkalemia
CPT/HCPCS: 36415; 36589; 71045; 74470; 77001; 80048; 80053; 80061; 82948; 83036; 83735; 84100; 84484; 85025; 85610; 85730; 86705; 86706; 86850; 86900; 86920; 87340; 90962; 93005; 97139; 99284; G0378; J1644; J1817; J2405; J7030; J7050; P9016; Q0162; U0002

== ENCOUNTER 2022-05-06 16:32 | Emergency (ER) | payer MEDICARE, OTHER ==
[~2022-05-06] VITALS: Ht 157.5 cm; Wt 54.4 kg
[~2022-05-06 16:32] MED LIST changes: +COREG12.5 MG PO; +COZAAR100 MG PO; +HYDRALAZINE HC100 MG PO; +ISORDIL20 MG PO; +LIPITOR20 MG PO; +SODIUM BICARBO650 MG PO
[2022-05-06 17:33] LABS: BASOPHILS % 0.6 % (0.0-1.0); EOSINOPHILS # (AUTO) 0.4 (0.0-0.4); EOSINOPHILS % 6.2 % (0.0-6.0); HEMATOCRIT 28.7 % (34.2-44.1); HEMOGLOBIN 8.6 g/dL (12.0-16.0); LYMPHOCYTES # (AUTO) 1.4 (1.0-3.2); LYMPHOCYTES % 21.2 % (18.0-39.1); MEAN CORPUSCULAR HEMOGLOBIN 30.8 pg (28-32); MEAN CORPUSCULAR VOLUME 102.9 fL (81-99); MONOCYTES # (AUTO) 0.5 (0.2-0.8); NEUTROPHILS # (AUTO) 4.3 (2.1-6.9); NEUTROPHILS % 64.8 % (38.7-80.0); PLATELET COUNT 338 x10e3/uL (140-360); RED BLOOD COUNT 2.79 x10e6/uL (3.6-5.1); RED CELL DISTRIBUTION WIDTH 13.9 % (11.7-14.4)
[2022-05-06 17:58] LABS: ALBUMIN 3.7 g/dL (3.5-5.0); ANION GAP 20.4 mmol/L (8-16); CREATININE, SERUM 9.18 mg/dL (0.57-1.11); POTASSIUM 4.4 mmol/L (3.5-5.1)
[2022-05-06 17:59] LABS: CALCIUM 8.8 mg/dL (8.4-10.2)
[2022-05-06 19:31] LABS: CREATINE KINASE MB 7.2 ng/mL (0-5.0)
[2022-05-06] MEDS ORDERED: CLONIDINE HCL 0.2 MG TAB PO ONE (19:45)
[2022-05-06 20:59] VITALS: BP 182/96
== END 2022-05-06 20:59 | disposition home or self-care (01) ==
LOC: ER 16:59
DX: I16.0 Hypertensive urgency (principal); I12.0 Hypertensive chronic kidney disease with stage 5 chronic kidney disease or end stage renal disease; N18.6 End stage renal disease; Z99.2 Dependence on renal dialysis; H54.61 Unqualified visual loss, right eye, normal vision left eye; Z85.828 Personal history of other malignant neoplasm of skin; Z86.73 Personal history of transient ischemic attack (TIA), and cerebral infarction without residual deficits
CPT/HCPCS: 36415; 80053; 82550; 82553; 83880; 84484; 85025; 99282

== ENCOUNTER 2022-05-13 14:23 | Observation (INO) | payer MEDICARE, OTHER ==
[~2022-05-13] VITALS: Ht 157.5 cm; Wt 57.2 kg
[2022-05-13] MEDS ORDERED: ASPIRIN 81 MG CHEW TAB PO ONE ×2 (14:45→16:00)
[2022-05-13 15:06] LABS: BASOPHILS % 0.5 % (0.0-1.0); EOSINOPHILS # (AUTO) 0.5 (0.0-0.4); EOSINOPHILS % 5.9 % (0.0-6.0); HEMATOCRIT 28.1 % (34.2-44.1); HEMOGLOBIN 8.7 g/dL (12.0-16.0); LYMPHOCYTES % 12.2 % (18.0-39.1); MEAN CORPUSCULAR HEMOGLOBIN 31.3 pg (28-32); MEAN CORPUSCULAR VOLUME 101.1 fL (81-99); MONOCYTES # (AUTO) 0.4 (0.2-0.8); MONOCYTES % 4.5 % (4.4-11.3); NEUTROPHILS % 76.5 % (38.7-80.0); PLATELET COUNT 283 x10e3/uL (140-360); RED BLOOD COUNT 2.78 x10e6/uL (3.6-5.1); RED CELL DISTRIBUTION WIDTH 13.9 % (11.7-14.4)
[2022-05-13 15:22] LABS: ALBUMIN 3.4 g/dL (3.5-5.0); ALBUMIN/GLOBULIN RATIO 0.9 (0.8-2.0); ALKALINE PHOSPHATASE 60 IU/L (40-150); ANION GAP 21.5 mmol/L (8-16); BLOOD UREA NITROGEN 84 mg/dL (7-26); BUN/CREATININE RATIO 9 (6-25); CALCIUM 8.9 mg/dL (8.4-10.2); CARBON DIOXIDE 13 mmol/L (22-29); CHLORIDE 115 mmol/L (98-107); CREATINE KINASE 79 IU/L (29-168); CREATININE, SERUM 9.18 mg/dL (0.57-1.11); GLUCOSE 81 mg/dL (74-118); POTASSIUM 4.5 mmol/L (3.5-5.1); SODIUM 145 mmol/L (136-145)
[2022-05-13 15:23] LABS: ALANINE AMINOTRANSFERASE < 6 IU/L (0-55)
[2022-05-13] MEDS ORDERED: SODIUM CHLORIDE 0.9% 1000ML 2,000 ML ONE (17:20)
[2022-05-13] MEDS ORDERED: HEPARIN 500 UNITS/5ML MDV INJ ONE (17:45)
[2022-05-13] MEDS ORDERED: SODIUM CHLORIDE 0.9% 1000ML 1,000 ML IV ONE (17:45)
[2022-05-13] MEDS ORDERED: HEPARIN SOD (PORCINE) 1000 UNIT/ML SDV ONE (20:08)
[2022-05-13 23:03] VITALS: BP 164/64
[2022-05-13 23:24] VITALS: BP 164/64
[2022-05-14] VITALS (7 sets, daily range): BP systolic 121–202; BP diastolic 53–90
[2022-05-14 06:32] LABS: BASOPHILS % 0.4 % (0.0-1.0); EOSINOPHILS # (AUTO) 0.5 (0.0-0.4); EOSINOPHILS % 6.7 % (0.0-6.0); HEMATOCRIT 26.7 % (34.2-44.1); HEMOGLOBIN 8.4 g/dL (12.0-16.0); LYMPHOCYTES # (AUTO) 1.4 (1.0-3.2); LYMPHOCYTES % 18.6 % (18.0-39.1); MEAN CORPUSCULAR HEMOGLOBIN 30.7 pg (28-32); MEAN CORPUSCULAR HGB CONC 31.5 g/dL (31-35); MEAN CORPUSCULAR VOLUME 97.4 fL (81-99); MONOCYTES # (AUTO) 0.6 (0.2-0.8); MONOCYTES % 8.3 % (4.4-11.3); NEUTROPHILS # (AUTO) 4.8 (2.1-6.9); NEUTROPHILS % 65.9 % (38.7-80.0); PLATELET COUNT 260 x10e3/uL (140-360); RED BLOOD COUNT 2.74 x10e6/uL (3.6-5.1); RED CELL DISTRIBUTION WIDTH 13.5 % (11.7-14.4)
[2022-05-14 06:52] LABS: ANION GAP 17.5 mmol/L (8-16); CALCIUM 8.5 mg/dL (8.4-10.2); CREATININE, SERUM 4.42 mg/dL (0.57-1.11); POTASSIUM 3.5 mmol/L (3.5-5.1)
[2022-05-14 07:01] LABS: CREATINE KINASE MB 4.5 ng/mL (0-5.0)
[2022-05-14] MEDS: HYDROCODONE/APAP 5MG-325MG TAB PO PRN ×2 (11:30→18:04)
[2022-05-14] MEDS: HYDRALAZINE HCL 100 MG TABLET PO SCH ×3 (11:52→23:43)
[2022-05-14] MEDS: NIFEDIPINE CR 30 MG TAB PO SCH ×2 (11:55→23:15)
[2022-05-14] MEDS: ISOSORBIDE DINITRATE 20 MG TAB PO SCH ×2 (14:12→20:58)
[2022-05-14 15:02] LABS: CREATINE KINASE MB 4.1 ng/mL (0-5.0)
[2022-05-14] MEDS ORDERED: CARVEDILOL 12.5 MG TAB PO SCH (17:00)
[2022-05-14] MEDS: SODIUM BICARBONATE 650 MG TAB PO SCH (17:23)
[2022-05-14] MEDS: ONDANSETRON HCL INJ 2MG/ML 2ML 2 MG/ML VIAL IV PRN (22:30)
[2022-05-15] VITALS (8 sets, daily range): BP systolic 122–175; BP diastolic 51–82
[2022-05-15] MEDS: ONDANSETRON HCL INJ 2MG/ML 2ML 2 MG/ML VIAL IV PRN (02:36)
[2022-05-15] MEDS: HYDRALAZINE HCL 100 MG TABLET PO SCH (05:20)
[2022-05-15] MEDS ORDERED: LOSARTAN POTASSIUM 100 MG TAB PO SCH (09:00)
[2022-05-15] MEDS ORDERED: HYDRALAZINE HCL 25 MG TAB PO PRN (09:00)
[2022-05-15] MEDS: ISOSORBIDE DINITRATE 20 MG TAB PO SCH ×3 (09:00→21:39)
[2022-05-15] MEDS: ATORVASTATIN 20 MG TAB PO SCH (09:00)
[2022-05-15] MEDS: CLOPIDOGREL BISULFATE 75 MG TAB PO SCH (09:07)
[2022-05-15] MEDS: SODIUM BICARBONATE 650 MG TAB PO SCH ×2 (09:07→16:29)
[2022-05-15] MEDS: HYDROCODONE/APAP 5MG-325MG TAB PO PRN ×2 (09:12→21:54)
[2022-05-15] MEDS: CARVEDILOL 12.5 MG TAB PO SCH ×2 (10:48→16:31)
[2022-05-15] MEDS: NIFEDIPINE CR 30 MG TAB PO SCH (16:33)
[2022-05-15] MEDS ORDERED: DIPHENHYDRAMINE HCL 25 MG CAP PO PRN (20:00)
[2022-05-16] VITALS: BP 130/67
[2022-05-16 04:00] VITALS: BP 144/63
[2022-05-16 06:58] LABS: CALCIUM 8.3 mg/dL (8.4-10.2); CREATININE, SERUM 6.71 mg/dL (0.57-1.11)
[2022-05-16 08:00] VITALS: BP 175/72
[2022-05-16] MEDS: SODIUM BICARBONATE 650 MG TAB PO SCH ×2 (09:00→17:00)
[2022-05-16] MEDS: CARVEDILOL 12.5 MG TAB PO SCH ×2 (09:00→18:36)
[2022-05-16] MEDS: ISOSORBIDE DINITRATE 20 MG TAB PO SCH ×3 (09:00→20:30)
[2022-05-16] MEDS: ATORVASTATIN 20 MG TAB PO SCH (09:37)
[2022-05-16] MEDS: CLOPIDOGREL BISULFATE 75 MG TAB PO SCH (09:37)
[2022-05-16] MEDS: NIFEDIPINE CR 30 MG TAB PO SCH ×2 (09:38→16:27)
[2022-05-16 12:49] VITALS: BP 160/73
[2022-05-16] MEDS ORDERED: ONDANSETRON HCL 4 MG ORAL DISINTEGRATING TAB PO PRN (14:30)
[2022-05-16] MEDS ORDERED: SODIUM CHLORIDE 0.9% 1000ML 2,000 ML ONE (14:55)
[2022-05-16] MEDS: HYDROCODONE/APAP 5MG-325MG TAB PO PRN ×2 (16:26→22:20)
[2022-05-16] MEDS ORDERED: EPOETIN ALFA-EPBX 10,000 UNIT/ML VIAL SC SCH (18:00)
[2022-05-16] MEDS ORDERED: SODIUM CHLORIDE 0.9% 1000ML 2,000 ML IV PRN (18:15)
[2022-05-16] MEDS ORDERED: HEPARIN SOD (PORCINE) 1000 UNIT/ML SDV IV PRN (18:15)
[2022-05-16 18:37] VITALS: BP 192/87
[2022-05-16 20:50] VITALS: BP 137/62
[2022-05-17] VITALS (7 sets, daily range): BP systolic 167–184; BP diastolic 73–79
[2022-05-17] MEDS: HYDROCODONE/APAP 5MG-325MG TAB PO PRN ×2 (04:48→10:10)
[2022-05-17 06:49] LABS: CREATININE, SERUM 4.21 mg/dL (0.57-1.11)
[2022-05-17] MEDS: ATORVASTATIN 20 MG TAB PO SCH (09:00)
[2022-05-17] MEDS: SODIUM BICARBONATE 650 MG TAB PO SCH (09:00)
[2022-05-17] MEDS: CLOPIDOGREL BISULFATE 75 MG TAB PO SCH (10:15)
[2022-05-17] MEDS: CARVEDILOL 12.5 MG TAB PO SCH (10:16)
[2022-05-17] MEDS: NIFEDIPINE CR 30 MG TAB PO SCH (10:16)
[2022-05-17] MEDS: ISOSORBIDE DINITRATE 20 MG TAB PO SCH (10:16)
== END 2022-05-17 11:50 | disposition home or self-care (01) ==
LOC: ER 14:36 → ERHOLD 15:58 → MED/SURG2 22:36 → OBSVTOIN 05-16 15:33 → INTOOBSV 05-16 15:33
PROVIDERS: ADMIT Internal Medicine; ATTEND Internal Medicine
DX: I12.0 Hypertensive chronic kidney disease with stage 5 chronic kidney disease or end stage renal disease (principal); N18.6 End stage renal disease; I50.23 Acute on chronic systolic (congestive) heart failure; E11.51 Type 2 diabetes mellitus with diabetic peripheral angiopathy without gangrene; Z95.820 Peripheral vascular angioplasty status with implants and grafts; H54.61 Unqualified visual loss, right eye, normal vision left eye; E11.22 Type 2 diabetes mellitus with diabetic chronic kidney disease; D63.8 Anemia in other chronic diseases classified elsewhere; E11.42 Type 2 diabetes mellitus with diabetic polyneuropathy; E78.5 Hyperlipidemia, unspecified; Z91.15 Patient's noncompliance with renal dialysis; Z99.2 Dependence on renal dialysis; Z90.5 Acquired absence of kidney; Z89.412 Acquired absence of left great toe; Z88.8 Allergy status to other drugs, medicaments and biological substances; Z95.5 Presence of coronary angioplasty implant and graft; Z86.73 Personal history of transient ischemic attack (TIA), and cerebral infarction without residual deficits; Z85.828 Personal history of other malignant neoplasm of skin; Z20.822 Contact with and (suspected) exposure to COVID-19
CPT/HCPCS: 36415 ×4; 71045 ×2; 80048 ×3; 80053; 82550 ×2; 82553 ×2; 83880; 84484 ×2; 85025 ×2; 86704; 86706; 87340; 90935; 93005; 94799; 96360; 96361; 99284; G0378 ×5; J1644 ×2; J2405 ×2; J7030 ×2; Q0162; U0002

== ENCOUNTER 2022-06-07 11:01 | Observation (INO) | payer MEDICARE, OTHER ==
[~2022-06-07] VITALS: Ht 157.5 cm; Wt 57.2 kg
[2022-06-07 11:21] LABS: BASOPHILS % 0.5 % (0.0-1.0); EOSINOPHILS # (AUTO) 0.2 (0.0-0.4); EOSINOPHILS % 3.7 % (0.0-6.0); HEMATOCRIT 29.7 % (34.2-44.1); LYMPHOCYTES # (AUTO) 1.1 (1.0-3.2); LYMPHOCYTES % 16.8 % (18.0-39.1); MEAN CORPUSCULAR HEMOGLOBIN 30.3 pg (28-32); MEAN CORPUSCULAR HGB CONC 30.3 g/dL (31-35); MONOCYTES # (AUTO) 0.7 (0.2-0.8); MONOCYTES % 10.7 % (4.4-11.3); NEUTROPHILS # (AUTO) 4.4 (2.1-6.9); PLATELET COUNT 303 x10e3/uL (140-360); RED BLOOD COUNT 2.97 x10e6/uL (3.6-5.1); RED CELL DISTRIBUTION WIDTH 13.5 % (11.7-14.4)
[2022-06-07 11:40] LABS: ANION GAP 17.9 mmol/L (8-16); CALCIUM 8.8 mg/dL (8.4-10.2); CREATININE, SERUM 7.39 mg/dL (0.57-1.11); POTASSIUM 3.9 mmol/L (3.5-5.1)
[2022-06-07] MEDS ORDERED: NIFEDIPINE 10 MG CAP PO STA (11:51)
[2022-06-07] MEDS ORDERED: HYDRALAZINE HCL 10 MG TAB PO ONE (12:00)
[2022-06-07] MEDS ORDERED: NIFEDIPINE CR 30 MG TAB PO ONE (12:15)
[2022-06-07 16:33] VITALS: BP 160/75
[2022-06-07 16:38] VITALS: BP 160/75
[2022-06-07 16:39] VITALS: BP 160/75
[2022-06-07 16:58] VITALS: BP 168/74
[2022-06-07] MEDS ORDERED: HEPARIN SOD (PORCINE) 1000 UNIT/ML SDV ONE (17:06)
[2022-06-07] MEDS ORDERED: SODIUM CHLORIDE 0.9% 1000ML 1,000 ML ONE (17:06)
[2022-06-07] MEDS ORDERED: GABAPENTIN100 MG PO (17:15)
[2022-06-07] MEDS ORDERED: SODIUM CHLORIDE 0.9% 1000ML 2,000 ML IV PRN (17:30)
[2022-06-07] MEDS ORDERED: HEPARIN SOD (PORCINE) 1000 UNIT/ML SDV IV PRN (17:30)
[2022-06-07 20:00] VITALS: BP 168/74
[2022-06-07 20:02] VITALS: BP 180/124
[2022-06-07] MEDS ORDERED: HYDRALAZINE HCL 25 MG TAB PO PRN (21:45)
[2022-06-07] MEDS ORDERED: ONDANSETRON HCL 4 MG ORAL DISINTEGRATING TAB PO PRN (21:45)
[2022-06-07] MEDS: GABAPENTIN 100 MG CAP PO SCH (22:34)
[2022-06-07] MEDS: NIFEDIPINE CR 30 MG TAB PO SCH (22:38)
[2022-06-08] VITALS (8 sets, daily range): BP systolic 145–175; BP diastolic 68–81
[2022-06-08] MEDS: GABAPENTIN 100 MG CAP PO SCH ×2 (08:45→17:01)
[2022-06-08] MEDS: NIFEDIPINE CR 30 MG TAB PO SCH ×2 (09:00→17:00)
== END 2022-06-08 18:23 | disposition home or self-care (01) ==
LOC: ER 11:07 → INTOOBSV 12:37 → ERHOLD 12:37 → MED/SURG 19:50
PROVIDERS: ADMIT Internal Medicine; ATTEND Internal Medicine
DX: E87.70 Fluid overload, unspecified (principal); I12.0 Hypertensive chronic kidney disease with stage 5 chronic kidney disease or end stage renal disease; N18.6 End stage renal disease; Z99.2 Dependence on renal dialysis; Z91.15 Patient's noncompliance with renal dialysis; Z90.5 Acquired absence of kidney; Z86.73 Personal history of transient ischemic attack (TIA), and cerebral infarction without residual deficits; Z88.8 Allergy status to other drugs, medicaments and biological substances; D63.1 Anemia in chronic kidney disease; K43.9 Ventral hernia without obstruction or gangrene; G62.9 Polyneuropathy, unspecified; Z20.822 Contact with and (suspected) exposure to COVID-19
CPT/HCPCS: 0223U; 36415; 71045; 80048; 85025; 90935; 93005; 99284; G0378 ×2; J1644 ×2; J7030 ×2

== ENCOUNTER 2022-07-23 14:56 | Emergency (ER) | payer MEDICARE, OTHER ==
[~2022-07-23] VITALS: Ht 157.5 cm; Wt 57.2 kg
[~2022-07-23 14:56] MED LIST changes: +GABAPENTIN100 MG PO
[2022-07-23 15:58] LABS: BASOPHILS # (AUTO) 0.1 (0.0-0.1); BASOPHILS % 0.9 % (0.0-1.0); EOSINOPHILS # (AUTO) 0.3 (0.0-0.4); EOSINOPHILS % 5.2 % (0.0-6.0); HEMATOCRIT 33.8 % (34.2-44.1); HEMOGLOBIN 10.2 g/dL (12.0-16.0); LYMPHOCYTES # (AUTO) 1.5 (1.0-3.2); LYMPHOCYTES % 24.1 % (18.0-39.1); MEAN CORPUSCULAR HGB CONC 30.2 g/dL (31-35); MEAN CORPUSCULAR VOLUME 99.4 fL (81-99); MONOCYTES # (AUTO) 0.4 (0.2-0.8); MONOCYTES % 6.6 % (4.4-11.3); NEUTROPHILS % 62.9 % (38.7-80.0); PLATELET COUNT 327 x10e3/uL (140-360); RED CELL DISTRIBUTION WIDTH 16.2 % (11.7-14.4)
[2022-07-23 16:19] LABS: CALCIUM 8.9 mg/dL (8.4-10.2); CREATININE, SERUM 8.38 mg/dL (0.57-1.11)
== END 2022-07-23 18:39 | disposition home or self-care (01) ==
LOC: ER 15:01
DX: I12.0 Hypertensive chronic kidney disease with stage 5 chronic kidney disease or end stage renal disease (principal); N18.6 End stage renal disease; H54.8 Legal blindness, as defined in USA; E78.5 Hyperlipidemia, unspecified; Z99.2 Dependence on renal dialysis; Z91.15 Patient's noncompliance with renal dialysis; Z88.8 Allergy status to other drugs, medicaments and biological substances; Z79.02 Long term (current) use of antithrombotics/antiplatelets; Z90.5 Acquired absence of kidney
CPT/HCPCS: 36415; 80048; 85025; 93005; 99284